=== PATIENT | female | born 1945 | race Caucasian/White ===

== ENCOUNTER 2017-04-28 14:46 | Emergency (ER) | payer MEDICARE, OTHER ==
[2017-04-28 15:28] LABS: BASOPHILS % (AUTO) 0.4 %; HCT - HEMATOCRIT 39.4 % (37.0-47.0); HGB - HEMOGLOBIN 13.2 g/dL (12.0-16.0); LYMPHOCYTES # (AUTO) 2.2 10^3/uL (1.5-3.5); LYMPHOCYTES % (AUTO) 45.1 %; MEAN CORPUSCULAR HEMOGLOBIN 30.4 pg (27.0-31.0); MEAN CORPUSCULAR HGB CONC 33.5 g/dL (32.0-36.0); MEAN CORPUSCULAR VOLUME 90.7 fL (81.0-99.0); MEAN PLATELET VOLUME 7.2 fL (7.9-10.8); MONOCYTES # (AUTO) 0.5 10^3/uL (0.0-1.0); MONOCYTES % (AUTO) 10.2 %; NEUTROPHILS # (AUTO) 2.1 10^3/uL (1.5-6.6); NEUTROPHILS % (AUTO) 43.3 %; NUCLEATED RED BLOOD CELLS AUTO 0.1 /100WBC; RED BLOOD COUNT 4.34 10^6/uL (4.20-5.40); RED CELL DISTRIBUTION WIDTH 13.7 % (12.0-15.0); UNCORRECTED WHITE BLOOD COUNT 4.9 x10^3/uL; WHITE BLOOD COUNT 4.9 x10^3/uL (4.8-10.8)
--- NOTE | 2017-04-28 15:29 | ED Physician Documentation ---
PD HPI CHEST PAIN - Stated complaint Stated Complaint: PX LT SIDE CHEST AREA - Chief complaint Chief Complaint: Cardiac - History obtained from History obtained from: Patient - History of Present Illness Timing - onset: Yesterday Timing - onset during: Other (states awoke from sleeep and had L sided sharp chest pain, "like pokes" lasted 1-2 seconds. Occured again this am. Currently feels normal) Timing - duration: Seconds (1-2) Timing - details: Abrupt onset Pain level max: 3 Pain level now: 0 Quality: Sharp Location: Other (L upper chest) Radiation: Other (nonradiating) Improved by: No: Rest, Oxygen, Nitro, ASA, Antacids, Other medication, Nothing Worsened by: No: Exertion, Inspiration, Eating, Movement, Palpation, Position Associated symptoms: No: Shortness of air, Diaphoresis, Nausea, Vomiting, Feeling faint / dizzy, General Weakness, Palpitations, Cough Similar symptoms before: Has not had sx before Recently seen: Not recently seen Review of Systems Constitutional: denies: Fever, Chills Ears: denies: Ear pain Nose: denies: Rhinorrhea / runny nose, Congestion Throat: denies: Sore throat Cardiac: reports: Other (no recent travel). denies: Pedal edema, Calf pain Respiratory: denies: Dyspnea, Cough, Hemoptysis, Wheezing GI: denies: Abdominal Pain, Nausea, Vomiting, Diarrhea Skin: denies: Rash Musculoskeletal: denies: Neck pain, Back pain Neurologic: denies: Headache PD PAST MEDICAL HISTORY - Past Medical History Other Past Medical History: tremors - Past Surgical History Past Surgical History: Yes General: Colonoscopy - Present Medications Home Medications: Ambulatory Orders Medication Instructions Recorded Confirmed Gabapentin [Neurontin] 300 mg PO TID PRN 04/18/16 04/28/17 - Allergies Allergies/Adverse Reactions: Allergies Allergy/AdvReac Type Severity Reaction Status Date / Time No Known Drug Allergies Allergy Verified 04/18/16 16:23 - Social History Does the pt smoke?: No Smoking Status: Former smoker Does the pt drink ETOH?: No Does the pt have substance abuse?: No - Immunizations Immunizations are current?: Yes PD ED PE NORMAL - Vitals Vital signs reviewed: Yes - General General: Alert and oriented X 3, No acute distress, Well developed/nourished - HEENT HEENT: Moist mucous membranes - Neck Neck: Supple, no meningeal sign - Cardiac Cardiac: RRR, No murmur, Strong equal pulses, Other (no chest wall tenderness) - Respiratory Respiratory: No respiratory distress, Clear bilaterally - Abdomen Abdomen: Soft, Non tender, Non distended - Derm Derm: Warm and dry - Extremities Extremities: No deformity, No edema, No calf tenderness / cord - Neuro Neuro: Alert and oriented X 3 - Psych Psych: Normal mood, Normal affect Results - Vitals Vitals: Vital Signs - 24 hr 04/28/17 04/28/17 14:50 15:52 Temperature 36.0 C L 36.0 C L Heart Rate 68 69 Respiratory 16 18 Rate Blood Pressure 137/75 H 118/56 L O2 Saturation 96 95 Oxygen O2 Source Room air - EKG (time done) 1522 Rate: Rate (enter#) (61) Rhythm: NSR Braxton: Normal Intervals: Normal MO QRS: Normal Ischemia: Normal ST segments, Other (early R wave transition) - Labs Labs: Laboratory Tests 04/28/17 04/28/17 04/28/17 09:54 09:54 15:07 WBC Cancelled 4.9 RBC Cancelled 4.34 Hgb Cancelled 13.2 Hct Cancelled 39.4 MCV Cancelled 90.7 MCH Cancelled 30.4 MCHC Cancelled 33.5 RDW Cancelled 13.7 Plt Count Cancelled 241 MPV Cancelled 7.2 L Neut # Cancelled 2.1 Lymph # Cancelled 2.2 [place] # Cancelled 0.5 Eos # Cancelled 0.0 Baso # Cancelled 0.0 Absolute Nucleated RBC Cancelled 0.00 Nucleated RBCs Cancelled 0.1 Manual Slide Review Cancelled WBC Morphology Cancelled Platelet Estimate Cancelled Platelet Morphology Cancelled RBC Morph Micro Appear Cancelled Sodium Cancelled Potassium Cancelled Chloride Cancelled Carbon Dioxide Cancelled Anion Gap Cancelled BUN Cancelled Creatinine Cancelled Estimated GFR (MDRD) Cancelled Glucose Cancelled Calcium Cancelled Total Bilirubin Cancelled AST Cancelled ALT Cancelled Alkaline Phosphatase Cancelled Troponin I Total Protein Cancelled Albumin Cancelled Globulin Cancelled Albumin/Globulin Ratio Cancelled Triglycerides Cancelled Cholesterol Cancelled LDL Cholesterol, Calc Cancelled VLDL Cholesterol Cancelled HDL Cholesterol Cancelled LDL/HDL Ratio Cancelled Cholesterol/HDL Ratio Cancelled Lipase Slides for Path Review Cancelled 04/28/17 04/28/17 15:07 15:07 WBC RBC Hgb Hct MCV MCH MCHC RDW Plt Count MPV Neut # Lymph # [place] # Eos # Baso # Absolute Nucleated RBC Nucleated RBCs Manual Slide Review WBC Morphology Platelet Estimate Platelet Morphology RBC Morph Micro Appear Sodium 137 Potassium 3.8 Chloride 102 Carbon Dioxide 28 Anion Gap 7.0 BUN 18 Creatinine 0.9 Estimated GFR (MDRD) 61 L Glucose 103 H Calcium 9.2 Total Bilirubin 0.5 AST 28 ALT 20 Alkaline Phosphatase 58 Troponin I < 0.04 Total Protein 7.2 Albumin 4.3 Globulin 2.9 Albumin/Globulin Ratio 1.5 Triglycerides Cholesterol LDL Cholesterol, Calc VLDL Cholesterol HDL Cholesterol LDL/HDL Ratio Cholesterol/HDL Ratio Lipase 32 Slides for Path Review - Rads (name of study) cxr Radiology: Prelim report reviewed, EMP read contemporaneously, See rad report ( No acute disease) PD MEDICAL DECISION MAKING - ED course Complexity details: reviewed results, re-evaluated patient, considered differential (No ST elevation GA, no aortic dissection, no PE, no tension pneumothorax, no aortic aneurysm), d/w patient ED course: Patient is a 72-year-old female who presents to the emergency department with a few seconds of intermittent sharp chest pain yesterday morning and this morning. Has not recurred since. Did not occur in the emergency department. No acute findings on telemetry, laboratory testing or chest x-ray to explain her symptoms. Possible that she is having premature ventricular contractions causing discomfort. We will have her follow-up with her doctor for further evaluation and care including a Holter monitor if the symptoms persist. She will return if the symptoms worsen or become more steady. Patient counseled regarding signs and symptoms for which I believe and urgent re-evaluation would be necessary. Patient with good understanding of and agreement to plan and is comfortable going home at this time This document was made in part using voice recognition software. While efforts are made to proofread this document, sound alike and grammatical errors may occur. Departure - Departure Disposition: 01 Home, Self Care Clinical Impression: Chest pain Qualifiers: Chest pain type: unspecified Qualified Code(s): R07.9 - Chest pain, unspecified Condition: Good Instructions: ED Chest Pain Atypical Unkn Cause Follow-Up: [facility] [Provider Group] [facility] [Provider Group] Comments: The cause of your symptoms is unclear today. Return if you worsen. If your symptoms continue, your doctor may consider a Holter monitor. Discharge Date/Time: 04/28/17 16:49
[2017-04-28 15:32] LABS: ALBUMIN/GLOBULIN RATIO 1.5 (1.0-2.2); BILIRUBIN,TOTAL 0.5 mg/dL (0.2-1.0); CALCIUM 9.2 mg/dL (8.5-10.3); CREATININE 0.9 mg/dL (0.4-1.0); POTASSIUM 3.8 mmol/L (3.5-5.0); TOTAL PROTEIN 7.2 g/dL (6.7-8.2)
[2017-04-28 15:52] VITALS: BP 118/56
--- NOTE | 2017-04-28 16:32 | XRAY Preliminary Report ---
Exam: XR Chest 1 View IMPRESSION: No focal consolidation. [facility] SITE ID: [id number]
--- NOTE | 2017-04-28 16:35 | XRAY Report ---
EXAM: CHEST RADIOGRAPHY EXAM DATE: 04/28/2017 04:00 PM. CLINICAL HISTORY: Chest pain. COMPARISON: Chest radiograph dated 03/27/2016. TECHNIQUE: 1 view. FINDINGS: Lungs/Pleura: No focal opacities evident. No pleural effusion. No pneumothorax. Mediastinum: Within exam limitations, cardiomediastinal contour is normal. Other: None. IMPRESSION: No focal consolidation. [facility] Referring Provider Line: [phone] SITE ID: [id number]
== END 2017-04-28 16:49 | disposition home or self-care (01) ==
LOC: ED 14:46
DX: R07.9 Chest pain, unspecified (principal); Z87.891 Personal history of nicotine dependence
CPT/HCPCS: 36415; 71010; 80053; 80061; 83036; 83690; 84153; 84484; 85025; 93005; 99283; 99284

== ENCOUNTER 2019-05-20 15:55 | Emergency (ER) | payer MEDICARE, OTHER ==
[2019-05-20 16:02] VITALS: BP 145/60
--- NOTE | 2019-05-20 16:33 | ED Physician Documentation ---
PD HPI HEAD INJURY - Stated complaint Stated Complaint: HEAD INJURY - Chief complaint Chief Complaint: Neuro - History obtained from History obtained from: Patient - History of Present Illness Mechanism of head injury: Other (took a misstep backwards and hit the back of her head against a concrete wall) Where head injury occurred: Other (library) Timing - onset: How many hours ago (2), Today Severity Comments: mild, feels a bump but has no pain Location of injury: Other (back of head) Quality of pain: Other (none) Associated symptoms: No: LOC, AMS, Amnesia, Nausea / vomiting, Neck pain, Paresthesias, Seizures, Ear drainage, Nasal drainage Symptoms improve with: Other (nothing) Symptoms worsen with: Other (nothing) Contributing factors: No: Anticoagulated, Intoxicated Similar symptoms before: Has not had sx before Recently seen: Not recently seen - Treatment prior to arrival Treatment prior to arrival: none Review of Systems Ten Systems: 10 systems reviewed and negative Constitutional: reports: Reviewed and negative Cardiac: reports: Reviewed and negative Respiratory: reports: Reviewed and negative GI: reports: Reviewed and negative Skin: reports: Reviewed and negative Musculoskeletal: reports: Reviewed and negative Neurologic: reports: Head injury. 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 - Present Medications Home Medications: Ambulatory Orders Medication Instructions Recorded Confirmed Gabapentin [Neurontin] 300 mg PO TID PRN 04/18/16 04/28/17 - Allergies Allergies/Adverse Reactions: Allergies Allergy/AdvReac Type Severity Reaction Status Date / Time No Known Drug Allergies Allergy Verified 04/18/16 16:23 - Social History Does the pt smoke?: No Smoking Status: Former smoker Does the pt drink ETOH?: No Does the pt have substance abuse?: No - Immunizations Immunizations are current?: Yes PD ED PE NORMAL - Vitals Vital signs reviewed: Yes - General General: Alert and oriented X 3, No acute distress, Well developed/nourished - HEENT HEENT: Atraumatic, PERRL, EOMI, Ears normal, Pharynx benign, Other (normal TMs bilaterally, no hemotympanum) - Neck Neck: Supple, no meningeal sign, No bony TTP, No JVD, Other (full ROM) - Cardiac Cardiac: RRR - Respiratory Respiratory: No respiratory distress - Abdomen Abdomen: Non tender, Non distended - Female Female : Deferred - Rectal Rectal: Deferred - Back Back: No spinal TTP - Derm Derm: Normal color, Warm and dry, No rash - Extremities Extremities: No deformity, Normal ROM s pain, No edema - Neuro Neuro: Alert and oriented X 3, No motor deficit, No sensory deficit Eye Opening: Spontaneous Motor: Obeys Commands Verbal: Oriented GCS Score: 15 - Psych Psych: Normal mood, Normal affect PD ED PE EXPANDED - HEENT HEENT: Other (occipital scalp contusion present without skin injury ) Results - Vitals Vitals: Vital Signs - 24 hr 05/20/19 15:58 Temperature 36.9 C Heart Rate 77 Respiratory 18 Rate Blood Pressure 145/60 H O2 Saturation 98 Oxygen O2 Source Room air PD MEDICAL DECISION MAKING - ED course Complexity details: considered differential, d/w patient ED course: ddx- scalp contusion, skull fracture, ICH, concussion 74 y/o F with very minor head trauma, not anticoagulated, no skin breakdown and is asymptomatic except for a very mild bump on the back of her occiput. Normal neuro and physical exam. Discussed with pt that this is very low risk for ICH or injury and pt denies any pain. Does not want meds. She is stable for discharge with return precatuions in case of new or concerning symptoms. Departure - Departure Disposition: 01 Home, Self Care Clinical Impression: Contusion of head Qualifiers: Encounter type: initial encounter Contusion of head detail: scalp Qualified Code(s): S00.03XA - Contusion of scalp, initial encounter Condition: Stable Record reviewed to determine appropriate education?: Yes Instructions: ED Head Injury Closed Follow-Up: your, doctor [Other] - As Needed Comments: You have a contusion of your scalp. There is no evidence of serious head trauma on your examination. You can use ice on the back of your head for discomfort and to reduce swelling and take tylenol as needed for a headache.
== END 2019-05-20 16:50 | disposition home or self-care (01) ==
LOC: ED 15:55
DX: S00.03XA Contusion of scalp, initial encounter (principal); W10.9XXA Fall (on) (from) unspecified stairs and steps, initial encounter; Y92.241 Library as the place of occurrence of the external cause; Z87.891 Personal history of nicotine dependence
CPT/HCPCS: 99282

== ENCOUNTER 2020-03-06 10:30 | Outpatient (CLI) | payer MEDICARE, OTHER | END 2020-03-06 23:59 | disposition home or self-care (01) | LOC: COV 10:30 | PROVIDERS: ATTEND Family Medicine | DX: Z11.59 Encounter for screening for other viral diseases (principal) ==

== ENCOUNTER 2020-07-14 07:37 | Outpatient (CLI) | payer MEDICARE, OTHER ==
--- NOTE | 2020-07-14 13:05 | Ultrasound Report ---
PROCEDURE: Abdomen Complete INDICATIONS: ABD PAIN TECHNIQUE: Real-time scanning was performed of the abdominal and retroperitoneal organs, with image documentatio n. COMPARISON: None. FINDINGS: Liver: The liver demonstrates normal size. The liver demonstrates increased echogenicity, which limit s ultrasound sensitivity for detection of masses. Overall evaluation of the liver is limited. Gallbladder: No gallstones or significant sludge can be seen. The gallbladder wall does not appear th ickened. There is no specific pericholecystic fluid. The sonographic Delgado's sign is negative. Biliary ducts: Intrahepatic bile ducts are non-dilated. Extrahepatic bile duct caliber measures 3 m m. Normal is 6-7 mm or less in diameter, or 10 mm or less post-cholecystectomy. Pancreas: A gastric tube is seen, with the tip not visible within the [id number] of this image, a lthough clearly below the diaphragm. Spleen: Spleen is normal in size and homogeneous in echotexture. Kidneys: Kidneys are normal in size and echotexture. Right kidney measures 10.3 cm long; left kidne y measures 12.1 cm long. No hydronephrosis or nephrolithiasis. No solid masses. Within the left ki dney, there is a 1 cm simple cyst seen. Overall evaluation of the kidneys is limited, secondary to [place] wel gas. Aorta: Visualized aorta is normal in caliber at less than 3 cm. Iliacs: Proximal common iliac arteries are normal in caliber at less than 2.5 cm. IVC: Intrahepatic inferior vena cava is patent. Miscellaneous: No free abdominal fluid. IMPRESSION: No imaging explanation is found for this patient's presenting history of abdominal pain. The gallbladder demonstrates a normal sonographic appearance. No biliary dilatation is seen. Likely fatty liver infiltration. Overall imaging quality is limited, secondary to bowel gas. Reviewed by: Dwayne Gutierrez MD on 07/14/2020 12:04 PM [facility] Approved by: Dwayne Gutierrez MD on 07/14/2020 12:04 PM [facility] Station ID: [id number]
== END 2020-07-14 07:38 | disposition home or self-care (01) ==
LOC: DI 07:37
PROVIDERS: ATTEND Physician Assistant
DX: R01.1 Cardiac murmur, unspecified (principal); R09.89 Other specified symptoms and signs involving the circulatory and respiratory systems; R10.11 Right upper quadrant pain; R41.3 Other amnesia

== ENCOUNTER 2020-07-16 11:43 | Outpatient (CLI) | payer MEDICARE, OTHER ==
--- NOTE | 2020-07-16 13:26 | Ultrasound Report ---
PROCEDURE: Carotid Doppler Complete INDICATIONS: CARDIAC MURMUR, OTH SYMPTOMS AND SIGNS INVOLVING T TECHNIQUE: Color and pulse Doppler interrogation was performed of both carotid systems, with image documentation and velocity measurements. COMPARISON: None. FINDINGS: Right side: Common carotid artery peak systolic velocity: 70 cm/sec. Internal carotid artery peak systolic velocity: 41 cm/sec. Internal carotid artery end diastolic velocity: 12 cm/sec. External carotid artery peak systolic velocity: 40 cm/sec. ICA/CCA peak systolic ratio: 0.6 . Blanchard scale imaging description: Mild calcific plaque at the bifurcation Percent internal carotid artery stenosis: Less than 50% . Vertebral artery: Flow direction is antegrade. Left side: Common carotid artery peak systolic velocity: 79 cm/sec. Internal carotid artery peak systolic velocity: 69 cm/sec. Internal carotid artery end diastolic velocity: 22 cm/sec. External carotid artery peak systolic velocity: 77 cm/sec. ICA/CCA peak systolic ratio: 0.9 . Blanchard scale imaging description: Mild calcific plaque at the bifurcation Percent internal carotid artery stenosis: Less than 50% . Vertebral artery: Flow direction is antegrade. IMPRESSION: 1. Less than 50% bilateral internal carotid artery stenosis. 2. Antegrade vertebral artery flow bilaterally. The estimate of stenosis included in the report of the imaging study was calculated using the NASCET method Reviewed by: Michaela Abraham MD on 07/16/2020 1:25 PM PST Approved by: Michaela Abraham MD on 07/16/2020 1:25 PM PST Station ID: [id number]
== END 2020-07-16 11:44 | disposition home or self-care (01) ==
LOC: DI 11:43
PROVIDERS: ATTEND Physician Assistant
DX: R01.1 Cardiac murmur, unspecified (principal); R09.89 Other specified symptoms and signs involving the circulatory and respiratory systems; R10.11 Right upper quadrant pain; R41.3 Other amnesia
CPT/HCPCS: 93880

== ENCOUNTER 2020-07-17 07:22 | Outpatient (CLI) | payer MEDICARE, OTHER | END 2020-07-17 07:23 | disposition home or self-care (01) | LOC: DI 07:22 | PROVIDERS: ATTEND Physician Assistant | DX: R00.1 Bradycardia, unspecified (principal); I51.7 Cardiomegaly; I34.8 Other nonrheumatic mitral valve disorders; I27.20 Pulmonary hypertension, unspecified | CPT/HCPCS: 93306 ==

== ENCOUNTER 2020-07-26 12:40 | Emergency (ER) | payer MEDICARE, OTHER ==
--- NOTE | 2020-07-26 13:04 | ED Physician Documentation ---
PD HPI ABD PAIN - Stated complaint Stated Complaint: BACK PX - Chief complaint Chief Complaint: Back Pain - History obtained from History obtained from: Patient - History of Present Illness Timing - onset: How many weeks ago (2) Timing - details: Gradual onset, Intermittant, Waxing and waning Quality: Cramping, Aching, Sharp, Pain Location: RUQ Radiation: Right flank. No: Lower back, Left flank Associated symptoms: Constipation. No: Nausea, Vomiting, Diarrhea, Melena Similar symptoms before: Has not had sx before (had shingles outbreak in that area years ago. No note of rash however, and has had the pain for couple weeks. Has had shingles vaccine couple years ago.) Recently seen: Clinic (seen by PC and had outpt labs and RUQ U/S as well as carotid duplex. 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 - Present Medications Home Medications: Ambulatory Orders Medication Instructions Recorded Confirmed Gabapentin [Neurontin] 300 mg PO TID PRN 04/18/16 04/28/17 Docusate Sodium 250Mg Capsule 250 mg PO DAILY #20 capsule 07/26/20 [Colace 250Mg Capsule] HYDROcod/ACETAM 5/325 [[place] 5/325] 1 ea PO Q6H PRN #15 tablet 07/26/20 Valacyclovir HCl [Valtrex] 500 mg PO TID #15 tablet 07/26/20 dexAMETHasone [Decadron] 4 mg PO DAILY #5 tablet 07/26/20 - Allergies Allergies/Adverse Reactions: Allergies Allergy/AdvReac Type Severity Reaction Status Date / Time No Known Drug Allergies Allergy Verified 07/26/20 13:01 - Social History Does the pt smoke?: No Smoking Status: Former smoker Does the pt drink ETOH?: No Does the pt have substance abuse?: No - Immunizations Immunizations are current?: Yes PD ED PE NORMAL - Vitals Vital signs reviewed: Yes - General General: Alert and oriented X 3, Well developed/nourished, Other (appears in pain) - HEENT HEENT: Pharynx benign - Neck Neck: Supple, no meningeal sign, No adenopathy - Cardiac Cardiac: RRR, No murmur - Respiratory Respiratory: Clear bilaterally - Abdomen Abdomen: Normal bowel sounds, Soft, Non distended, No organomegaly, Other (tender RUQ area. Not tender to light touch. ) - Back Back: Other (some tenderness to palpation right flank area. ) - Derm Derm: Normal color, Warm and dry, No rash - Extremities Extremities: No deformity, No tenderness to palpate, No edema, No calf tenderness / cord - Neuro Neuro: Alert and oriented X 3, No motor deficit, Normal speech Results - Vitals Vitals: Vital Signs - 24 hr 07/26/20 07/26/20 12:53 15:00 Temperature 36.6 C Heart Rate 88 75 Respiratory 16 18 Rate Blood Pressure 136/72 H 126/72 O2 Saturation 99 99 Oxygen O2 Source Room air - Labs Labs: Laboratory Tests 07/26/20 07/26/20 07/26/20 13:25 13:25 13:25 WBC 4.7 L RBC 4.57 Hgb 14.0 Hct 42.7 MCV 93.4 MCH 30.6 MCHC 32.8 RDW 13.2 Plt Count 268 MPV 9.2 Neut # (Auto) 2.4 Lymph # (Auto) 1.9 [place] # (Auto) 0.4 Eos # (Auto) 0.0 Baso # (Auto) 0.0 Absolute Nucleated RBC 0.00 Nucleated RBC % 0.0 Sodium 141 Potassium 4.1 Chloride 101 Carbon Dioxide 26 Anion Gap 14.0 H BUN 16 Creatinine 0.9 Estimated GFR (MDRD) 61 L Glucose 117 H Calcium 9.8 Total Bilirubin 0.7 AST 21 ALT 19 Alkaline Phosphatase 78 Total Protein 7.7 Albumin 4.5 Globulin 3.2 Albumin/Globulin Ratio 1.4 Lipase 27 Urine Color YELLOW Urine Clarity CLEAR Urine pH 5.5 Ur Specific [place] >=1.030 H Urine Protein NEGATIVE Urine Glucose (UA) NEGATIVE Urine Ketones TRACE Urine Occult Blood NEGATIVE Urine Nitrite NEGATIVE Urine Bilirubin NEGATIVE Urine Urobilinogen 0.2 (NORMAL) Ur Leukocyte Esterase NEGATIVE Ur Microscopic Review NOT INDICATED Urine Culture Comments NOT INDICATED - Rads (name of study) abd/pelvic CT Radiology: Prelim report reviewed (moderate stool burden. No acute process. ), See rad report PD MEDICAL DECISION MAKING - ED course Complexity details: considered differential (considerable pain right upper abd around to back. Tender in the area. CT normal. SHe had had shingles in the area about 5 years ago with somewhat similar pain. Consider that without rash. ), d/w patient Departure - Departure Disposition: 01 Home, Self Care Clinical Impression: Right sided abdominal pain Condition: Stable Record reviewed to determine appropriate education?: Yes Instructions: ED Abdominal Pain Unkn Cause Prescriptions: Docusate Sodium 250Mg Capsule [Colace 250Mg Capsule] 250 mg PO DAILY #20 capsule dexAMETHasone [Decadron] 4 mg PO DAILY #5 tablet HYDROcod/ACETAM 5/325 [[place] 5/325] 1 ea PO Q6H PRN #15 tablet PRN Reason: Pain Valacyclovir HCl [Valtrex] 500 mg PO TID #15 tablet Comments: Your blood tests and urine test and CT scan did not show any obvious abnormality other than a moderate amount of stool in the upper colon and small bowel. You could be having some pain associated from that so you could use a stool softener daily for the next week or 2. However the pain seems more localized than I would expect from that. Given the normal testing, I am curious if this may represent a mild case of shingles without rash. You would expect a mild case if you did get it since you have had the vaccine. As such we can treat with Laurita acyclovir or antiviral and Decadron anti- inflammatory for 5 days. Use Tylenol 4 times a day for pain or hydrocodone if needed for worse pain. Stay well-hydrated. Recheck if not improving well over the next few days and resolved within 3 to 5 days. Discharge Date/Time: 07/26/20 15:38
[2020-07-26 13:30] LABS: BASOPHILS % (AUTO) 0.6 %; EOSINOPHILS % (AUTO) 0.8 %; LYMPHOCYTES # (AUTO) 1.9 10^3/uL (1.5-3.5); LYMPHOCYTES % (AUTO) 39.7 %; MEAN CORPUSCULAR HEMOGLOBIN 30.6 pg (27.0-31.0); MEAN CORPUSCULAR HGB CONC 32.8 g/dL (32.0-36.0); MEAN CORPUSCULAR VOLUME 93.4 fL (81.0-99.0); MEAN PLATELET VOLUME 9.2 fL (7.9-10.8); MONOCYTES # (AUTO) 0.4 10^3/uL (0.0-1.0); MONOCYTES % (AUTO) 8.6 %; NEUTROPHILS # (AUTO) 2.4 10^3/uL (1.5-6.6); NEUTROPHILS % (AUTO) 50.1 %; PLT - PLATELET COUNT 268 10^3/uL (130-450); RED BLOOD COUNT 4.57 10^6/uL (4.20-5.40); RED CELL DISTRIBUTION WIDTH 13.2 % (12.0-15.0); WHITE BLOOD COUNT 4.7 x10^3/uL (4.8-10.8)
[2020-07-26 13:36] LABS: GLUCOSE, URINE (UA) NEGATIVE (NEGATIVE); KETONES,URINE (UA) TRACE mg/dL (NEGATIVE); LEUKOCYTE ESTERASE, URINE NEGATIVE (NEGATIVE); NITRITE,URINE NEGATIVE (NEGATIVE); OCCULT BLOOD,URINE NEGATIVE (NEGATIVE); PH,URINE 5.5 PH (5.0-7.5); PROTEIN,URINE NEGATIVE (NEGATIVE); UROBILINOGEN,URINE 0.2 (NORMAL) E.U./dL (NORMAL)
[2020-07-26] MEDS ORDERED: HYDROmorphone 1 MG/ML CARPUJECT IVP STA (13:36)
[2020-07-26] MEDS ORDERED: KETOROLAC 15 MG/ML VIAL IVP STA (13:36)
[2020-07-26 13:40] LABS: ALBUMIN 4.5 g/dL (3.2-5.5); ALBUMIN/GLOBULIN RATIO 1.4 (1.0-2.2); BILIRUBIN,TOTAL 0.7 mg/dL (0.2-1.0); CALCIUM 9.8 mg/dL (8.5-10.3); CREATININE 0.9 mg/dL (0.4-1.0); TOTAL PROTEIN 7.7 g/dL (6.7-8.2)
[2020-07-26 13:46] LABS: BILIRUBIN,URINE NEGATIVE (NEGATIVE); CLARITY,URINE CLEAR (CLEAR); ICTOTEST,URINE NEGATIVE
[2020-07-26] MEDS ORDERED: IOVERSOL 320 100 ML VIAL IVP ONE ×2 (13:57→16:49)
--- NOTE | 2020-07-26 14:35 | CT Report ---
PROCEDURE: Abdomen/Pelvis W INDICATIONS: right abd and flank pain for 2 weeks, worse CONTRAST: IV CONTRAST: Optiray 320 ml: 100 PO CONTRAST: *NO PO CONTRAST TECHNIQUE: After the administration of nonionic contrast, 5 mm thick sections acquired from the diaphragms to th e symphysis. 5 mm thick coronal and sagittal reformats were acquired. For radiation dose reduction, the following was used: automated exposure control, adjustment of mA and/or kV according to patient size. COMPARISON: Abdominal ultrasound 07/14/2020. FINDINGS: Image quality: Excellent. ABDOMEN: Lung bases: Lung bases are clear. Heart size is normal. Solid organs: Liver and spleen are normal in size and enhancement. Gallbladder Biliary system is non dilated. Pancreas enhances normally. No adrenal nodules. Kidneys demonstrate normal size an d enhancement, without hydronephrosis. Peritoneum and bowel: Bowel loops demonstrate normal wall thickness and caliber. No free fluid or a ir. There is generalized colonic obstipation bilaterally, within the abdomen and pelvis. Nodes and vessels: No retroperitoneal or mesenteric adenopathy by size criteria. Aorta and inferior vena cava are normal in size. Miscellaneous: No ventral hernias. PELVIS: Genitourinary: Bladder wall thickness is normal. Miscellaneous: No inguinal hernias or adenopathy. Bones: No suspicious bony lesions. No vertebral body compression fractures. IMPRESSION: Generalized colonic obstipation, as a potential etiology for current symptomatology. No urinary tract stone or obstruction is suspected. No perinephric edema is found. A mass lesion as caus e of stool retention is not identified. Reviewed by: Chip Hogue MD on 07/26/2020 2:34 PM PST Approved by: Chip Hogue MD on 07/26/2020 2:34 PM PST Station ID: [id number]
[2020-07-26] MEDS ORDERED: DOCUSATE SODIUM 100 MG CAPSULE PO STA (14:54)
[2020-07-26 15:00] VITALS: BP 126/72
[2020-07-26] MEDS ORDERED: ONDANSETRON ODT 4 MG TABLET TL STA (15:27)
== END 2020-07-26 15:38 | disposition home or self-care (01) ==
LOC: ED 12:40
DX: R10.11 Right upper quadrant pain (principal); K59.00 Constipation, unspecified; Z87.891 Personal history of nicotine dependence
CPT/HCPCS: 36415; 74177; 80053; 81003; 83690; 85025; 96374; 99284; A9270; J1170; Q0162; Q9967; 81001; 87086

== ENCOUNTER 2020-08-06 11:12 | Outpatient (CLI) | payer MEDICARE, OTHER ==
[2020-08-06] MEDS ORDERED: GADOBUTROL 10 MMOL/10 ML VIAL ONE (11:46)
[2020-08-06] MEDS ORDERED: GADOBUTROL 10 MMOL/10 ML VIAL IVP ONE (14:10)
--- NOTE | 2020-08-06 16:05 | MRI Report ---
PROCEDURE: Angio Brain W/O (MRA) INDICATIONS: AMNESIA TECHNIQUE: Noncontrast axial 3-D [id number] MR angiogram, with 3-dimensional maximum intensity projection (M IP) reformats of the internal carotid arteries and posterior circulation then performed. COMPARISON: None. FINDINGS: Image quality: Excellent. Anterior circulation: Intracranial internal carotid arteries demonstrate normal size and intralumina l flow signal. The flow within the paired anterior cerebral arteries is normal and symmetric. Mild multifocal stenoses within the bilateral middle cerebral arteries. The flow within the middle cerebra l arteries is otherwise normal and symmetric. The anterior communicating artery is seen. Posterior circulation: Visualized portions of the vertebral arteries demonstrate normal caliber, and join to form a normal appearing basilar artery. There is a high-grade focal stenosis within the left posterior cerebral artery, roughly 20 mm distal to its origin. High-grade stenosis within the right posterior cerebral artery, roughly 30 mm distal to its origin. IMPRESSION: 1. High-grade bilateral posterior cerebral artery stenoses. 2. Mild bilateral middle cerebral artery stenoses. Reviewed by: Michaela Abraham MD on 08/06/2020 4:03 PM PST Approved by: Michaela Abraham MD on 08/06/2020 4:03 PM PST Station ID: [id number]
--- NOTE | 2020-08-06 16:07 | MRI Report ---
PROCEDURE: Angio Neck W/WO (MRA) INDICATIONS: AMNESIA CONTRAST: IV CONTRAST: Gadavist ml: 8 TECHNIQUE: Axial and sagittal balanced GE through the neck. Coronal dynamic MRA after the administration of con trast in the arterial and venous phases, with rotating 3-dimensional maximum intensity projection (DC P) reformats constructed from subtraction images. COMPARISON: None. FINDINGS: Image quality: Excellent. Carotid system: Great vessels demonstrate a conventional anatomy as they arise from the aortic arch. The origins of the common carotid arteries appear normal. The calibers and courses of the common c arotid arteries are likewise normal. The carotid bifurcations appear normal bilaterally. There are m ild, roughly 20% stenoses of the proximal bilateral internal carotid arteries, which are otherwise pa tent. Posterior circulation: Right vertebral artery demonstrates a high-grade origin stenosis. Left vertebr al artery origin is patent. The more superior portions of the vertebral arteries demonstrate normal c ourse and caliber. Vertebral arteries join to form a normal appearing basilar artery. Miscellaneous: Subclavian arteries are patent throughout. Pre-contrast images through the neck demo nstrate no soft tissue abnormalities. IMPRESSION: 1. Mild bilateral proximal internal carotid artery stenoses. 2. High-grade right vertebral artery origin stenosis. 3. Patent left vertebral artery. Reviewed by: Michaela Abraham MD on 08/06/2020 4:06 PM PST Approved by: Michaela Abraham MD on 08/06/2020 4:06 PM PST Station ID: [id number]
== END 2020-08-06 11:13 | disposition home or self-care (01) ==
LOC: DI 11:12
PROVIDERS: ATTEND Physician Assistant
DX: R41.3 Other amnesia (principal); I65.01 Occlusion and stenosis of right vertebral artery; I65.23 Occlusion and stenosis of bilateral carotid arteries
CPT/HCPCS: 70544; 70549; A9585

== ENCOUNTER 2020-08-14 10:43 | Day surgery (SDC) | payer MEDICARE, OTHER ==
[2020-08-14] MEDS ORDERED: LACTATED RINGERS 1,000 ML IV ONE (11:29)
[2020-08-14] MEDS ORDERED: MIDAZOLAM 2 MG/2 ML VIAL ONE ×2 (12:35→12:36)
[2020-08-14] MEDS ORDERED: fentaNYL 250 MCG/5 ML VIAL ONE (12:36)
--- NOTE | 2020-08-14 12:36 | SURGERY HX AND PHYSICAL(T) ---
Surgical History & Physical - Chief Complaint/HPI Chief Complaint: Change in bowel habits History of Present Illness: 75-year-old female who has undergone ED work-up for chronic abdominal pain and acute change in bowel habits who was seen in surgical clinic by Dr. Wilfred To for said symptoms. Patient denies having undergone historic colonoscopy. She denies any bleeding per rectum. She denies any family history of colorectal cancer. She reports bowel movements have been progressively difficult acutely ever since her return from [place]. She even reports necessary digital disimpaction occasionally. CT scan reportedly showed colon full of stool. Patient referred for colonoscopy to evaluate further. Patient denies history of cerebrovascular accident/stroke, [place], DVT and/or PE. She does report cerebrovascular disease with vessels that she points to the back of her neck with compromised flow for which she is pending intervention at [facility]. She explains that "vessels in the front" were initially thought to be an issue but were evaluated and were "fine". She takessystemic anticoagulation and as reviewed takes no medications. - PMH/PSH/Social Hx Does the pt have a hx of MRSA?: No Cardiovascular: None Respiratory: None Skin: None, Other Endocrine/Autoimmune: None Gastrointestinal: C.difficile Urinary: None Musculoskeletal: None Blood Disorders: None Psychiatric: None General: Colonoscopy Orthopedic: Other Smoking Status: Former smoker Does the pt drink ETOH?: No Does the pt have substance abuse?: No - Home Meds and Allergies Allergies/Adverse Reactions: Allergies Allergy/AdvReac Type Severity Reaction Status Date / Time No Known Drug Allergies Allergy Verified 07/26/20 13:01 - Review of Systems Gastrointestinal: Abdominal pain, Constipation. No: Nausea, Vomiting, Ryne tochechezia - Vital Signs Heart Rate: 61 Blood Pressure: 127/67 Temperature: 36.0 C Respiratory Rate: 16 O2 Saturation: 97 Weight (kg): 84 kg Height: 1.7 m - Physical Exam General Appearance: positive: No acute distress, Alert Eyes Bilatera: positive: Normal inspection, PERRL, EOMI ENT: positive: ENT inspection nml Neck: positive: Nml inspection Respiratory: positive: Chest non-tender, No respiratory distress, Breath sounds nml. negative: Wheezes, Rales, Rhonchi Cardiovascular: positive: Regular rate & rhythm Abdomen: positive: Non-tender, No distention. negative: Tenderness, Guarding, Rebound Neurologic/Psychiatric: positive: Oriented x3, CN's nml (2-12), Motor nml, Sensation nml, Mood/affect nml, Other (Patient appears to have tremor, not resting, with admitted development of short-term memory loss in recent months.) - Patient Review Patient Review: Problems were reviewed with the patient during this visit. Medications were reviewed with the patient during this visit. Allergies were reviewed this patient during this visit. Pertinent Tests Reviewed: All pertitent test for this patient were reviewed. - Assessment & Plan Assessment and Plan: 75-year-old female with no reported significant past medical or surgical history other than cerebrovascular disease for which she is pending intervention at [facility] who has change in bowel habits and is indicated for indicated for diagnostic. Symptoms are as follows change in bowel movements and difficulty with defecation. Risks and benefits discussed at length. Informed consent obtained. Risks include but are not limited to, bleeding, infection, perforation, missed lesions, injury to local structures, need for further surgeries, and the periprocedural/sedation risks of heart attack stroke and . Patient was advised if any concerning areas were noted these would be sampled if too big to resect or performed for excision if within reasonable limits for endoscopic intervention. Please note that voice recognition software was used to transcribe this note and inadvertent errors might persist in spite of review and editing. I am obliged to you for your attention. I am thankful to you for allowing me to participate with you in this care of this patient.
--- NOTE | 2020-08-14 12:39 | ANESTHESIA ---
Pre-Anesthesia VS, & Labs - Diagnosis change in bowel habits - Procedure colonoscopy Vital Signs: Temp Pulse Resp BP Pulse Ox 36.0 C L 61 16 127/67 97 08/14/20 12:36 08/14/20 12:36 08/14/20 12:36 08/14/20 12:36 08/14/20 12:36 Height: 5 ft 7 in Weight (kg): 84 kg Body Mass Index: 29.0 BMI Classification: Overweight - NPO >8 hours - Is Patient ?: No Home Medications and Allergies Allergies/Adverse Reactions: Allergies Allergy/AdvReac Type Severity Reaction Status Date / Time No Known Drug Allergies Allergy Verified 07/26/20 13:01 Anes History & Medical History - Anesthetic History Anesthesia Complications: reports: No previous complications - Medical History Cardiovascular: reports: None Pulmonary: reports: None Gastrointestinal: reports: C.difficile Urinary: reports: None Musculoskeletal: reports: None Endocrine/Autoimmune: reports: None Blood Disorders: reports: None Skin: reports: None, Other Smoking Status: Former smoker - Surgical History General: Colonoscopy Gynecologic: Other Orthopedic: Other Exam General: Alert Dental: Dentures full Upper, Dentures full Lower Mallampati classification: II Respiratory: Lungs clear Cardiovascular: Regular rate Plan Anesthesia Type: MAC Consent for Procedure(s) Verified and Reviewed: Yes Code Status: Attempt Resuscitation ASA classification: 2-Mild systemic disease Is this case an emergency?: No
[2020-08-14] MEDS ORDERED: PROPOFOL 500 MG/50 ML 1,000 MG/100 ML VIAL ONE (12:43)
[2020-08-14] MEDS ORDERED: LIDOCAINE-MPF 2% 5 ML VIAL ONE (12:53)
[2020-08-14 13:21] VITALS: BP 110/95
--- NOTE | 2020-08-14 13:45 | ANESTHESIA POST OP EVALUATION ---
Anesthesia Post Eval - Post Anesthesia Eval Vitals: Last Vital Signs Temp 36.8 C 08/14/20 12:59 Pulse 58 L 08/14/20 13:19 Resp 15 08/14/20 13:19 BP 110/95 H 08/14/20 13:19 Pulse Ox 99 08/14/20 13:19 CV Function Including HR & BP: positive: Stable Pain Control: positive: Satisfactory Nausea & Vomiting: positive: Negative Mental Status: positive: Baseline Respiratory Status: Airway Patent Hydration Status: Satisfactory Anesthesia Complications: positive: None
== END 2020-08-14 10:44 | disposition home or self-care (01) ==
LOC: SDS 10:43
PROVIDERS: ATTEND Surgery
DX: R19.4 Change in bowel habit (principal); R10.11 Right upper quadrant pain; R41.82 Altered mental status, unspecified; I67.9 Cerebrovascular disease, unspecified; Z87.891 Personal history of nicotine dependence
CPT/HCPCS: 45330; J3010; J7120

== ENCOUNTER 2020-08-16 11:35 | Day surgery (SDC) | payer MEDICARE, OTHER ==
[2020-08-16] MEDS ORDERED: LACTATED RINGERS 1,000 ML IV ONE (12:33)
--- NOTE | 2020-08-16 12:57 | ANESTHESIA ---
Pre-Anesthesia VS, & Labs - Diagnosis change in bowel habits - Procedure colonoscopy Vital Signs: Temp Pulse Resp BP Pulse Ox 36 C L 66 18 123/76 100 08/16/20 11:45 08/16/20 11:45 08/16/20 11:45 08/16/20 11:45 08/16/20 11:45 Height: 5 ft 7.5 in Weight (kg): 82.7 kg Body Mass Index: 28.1 BMI Classification: Overweight - NPO >8 hours - Is Patient ?: No Home Medications and Allergies Allergies/Adverse Reactions: Allergies Allergy/AdvReac Type Severity Reaction Status Date / Time No Known Drug Allergies Allergy Verified 07/26/20 13:01 Anes History & Medical History - Anesthetic History Anesthesia Complications: reports: No previous complications - Medical History Cardiovascular: reports: None Pulmonary: reports: None Gastrointestinal: reports: C.difficile Urinary: reports: None Neuro: reports: Other (undergoing evaluation of cerebral vasculature) Musculoskeletal: reports: None Endocrine/Autoimmune: reports: None Blood Disorders: reports: None Skin: reports: None, Other Smoking Status: Former smoker - Surgical History General: Colonoscopy Gynecologic: Other Orthopedic: Other Exam General: Alert Dental: WNL Neck Mobility: Normal Mallampati classification: II Respiratory: Lungs clear Cardiovascular: Regular rate Plan Anesthesia Type: MAC Consent for Procedure(s) Verified and Reviewed: Yes Code Status: Attempt Resuscitation ASA classification: 2-Mild systemic disease Is this case an emergency?: No
[2020-08-16] MEDS ORDERED: PROPOFOL 500 MG/50 ML 500 MG/50 ML VIAL ONE (13:35)
[2020-08-16] MEDS ORDERED: PROPOFOL 200 MG/20 ML VIAL IVP ONE (14:04)
[2020-08-16] MEDS ORDERED: LACTATED RINGERS 550 ML IV ONE (14:22)
[2020-08-16] MEDS ORDERED: GLYCOPYRROLATE 1 MG/5 ML VIAL ONE (14:25)
--- NOTE | 2020-08-16 14:41 | PROVIDER PROGRESS NOTE ---
Progress Note 75-year-old female with likely colonic inertia who has had acute change in bowel habits. Has undergone CT scan which showed significant stool burden. She was scheduled for colonoscopy at which time she underwent 2-day prep. At the time of her initial attempted lower endoscopic evaluation she had extensive retained impacted stool precluding endoscopic evaluation beyond the splenic flexure. She was reattempted for colonoscopy today with the following findings: 1. Significantly angular, tortuous, redundant colon for which multiple postural changes, stiffening wire, and counterpressure was necessary to achieve the ascending colon. 2. The cecum was not formally achieved though was seen in the distance. In the setting and over the concern for missed lesion in this patient who is never undergone endoscopic evaluation historically, clip was placed once extent able to be achieved was reached. This would afford focus of radiographic evaluation for the remnant colon that had yet been surveyed. 3. No extensive diverticulosis appreciated. 4. Two 1 cm rectosigmoid polyps removed by hot snare polypectomy. 5. Internal hemorrhoids and skin tags/hypertrophic papilla appreciated. Given the inability to fully evaluate the colon to the cecum as would have been confirmed by intubation of the ileocecal valve, and what was likely 1 to 2 feet of colon that we could not formally evaluate, I have spoken to radiology about rectal contrast to rule out any occult lesions and assure full evaluation if not through surrogate. Please note that voice recognition software was used to transcribe this note and inadvertent errors might persist in spite of review and editing. I am obliged to you for your attention. I am thankful to you for allowing me to participate with you in this care of this patient.
[2020-08-16] MEDS ORDERED: IOVERSOL 320 100 ML VIAL IVP ONE ×2 (14:45→16:40)
[2020-08-16] MEDS ORDERED: IOVERSOL 320 50 ML VIAL ONE (14:45)
--- NOTE | 2020-08-16 14:50 | ANESTHESIA POST OP EVALUATION ---
Anesthesia Post Eval - Post Anesthesia Eval Vitals: Last Vital Signs Temp 36.0 C L 08/16/20 14:22 Pulse 81 08/16/20 14:35 Resp 16 08/16/20 14:35 BP 178/85 H 08/16/20 14:35 Pulse Ox 99 08/16/20 14:35 CV Function Including HR & BP: positive: Stable Pain Control: positive: Satisfactory Nausea & Vomiting: positive: Negative Mental Status: positive: Patient Participates Respiratory Status: Airway Patent Hydration Status: Satisfactory Anesthesia Complications: positive: None
[2020-08-16 15:18] VITALS: BP 172/100
--- NOTE | 2020-08-16 16:30 | CT Report ---
PROCEDURE: Abdomen/Pelvis W INDICATIONS: colonic inertia, incomplete colonoscopy CONTRAST: IV CONTRAST: Optiray 320 ml: 100 PO CONTRAST: Optiray 320 ml50 TECHNIQUE: After the administration of intravenous, oral, and rectal contrast, 5 mm thick sections acquired from the diaphragms to the symphysis. 5 mm thick coronal and sagittal reformats were acquired. For radi ation dose reduction, the following was used: automated exposure control, adjustment of mA and/or kV according to patient size. COMPARISON: CT abdomen pelvis 07/26/2020. FINDINGS: Image quality: Excellent. ABDOMEN: Lung bases: There is mild atelectasis and scarring the lung bases. Heart size is normal. Solid organs: Evaluation of the liver demonstrates no focal hepatic lesions. Gallbladder appears wit hin normal limits without calcified gallstones. Biliary system is non dilated. The spleen is normal in size. Pancreas enhances normally without peripancreatic fat stranding or fluid collections. There is nodular thickening of the left adrenal gland measuring up to 1.1 cm with indeterminate attenuation values. Kidneys demonstrate no hydronephrosis. Peritoneum and bowel: Small bowel loops demonstrate normal wall thickness and caliber. A rectal tube is present with rectal contrast distending the colon proximally to the level of the mid ascending col on. There is segmental nondistention of the distal descending and proximal sigmoid colon. The sigmoid colon is tortuous in appearance. No discrete intraluminal mass identified within the opacified loops of bowel. There is a linear filling defect within the mid transverse colon suggestive of residual st ool. The cecum and proximal ascending colon are nonopcified limiting evaluation. No free fluid or air . Nodes and vessels: No retroperitoneal or mesenteric adenopathy by size criteria. Aorta and inferior vena cava are normal in size. Miscellaneous: No ventral hernias. PELVIS: Genitourinary: Bladder wall thickness is normal. Miscellaneous: No inguinal hernias or adenopathy. Bones: No suspicious bony lesions. No vertebral body compression fractures. IMPRESSION: 1. No discrete intraluminal mass identified within the opacified colon. A nondisplaced segment involv ing the distal descending and proximal sigmoid colon is incompletely evaluated due to nondistention l ikely due to peristaltic activity. The proximal descending colon are not opacified limiting evaluatio n. 2. Indeterminate nodular thickening of the left adrenal gland. Further evaluation may be obtained wit h an adrenal protocol MRI or CT if clinically indicated. Reviewed by: Donte Zavala MD on 08/16/2020 4:28 PM PST Approved by: Donte Zavala MD on 08/16/2020 4:28 PM PST Station ID: [id number]
[2020-08-16] MEDS ORDERED: IOVERSOL 320 50 ML VIAL PO ONE (16:38)
--- OUTSIDE RECORDS SUMMARY | 2020-08-22 01:09 | EXTERNAL MEDICAL SUMMARY RPT | Continuity of Care Document ---
:1945 Demographics Phone Unavailable Preferred Language Latvian Marital Status Unknown Shinto Affiliation Unknown Race Unknown Ethnic Group Unknown Author Organization [place] Address [address] [place] [address] Phone Care Team Providers Name Role Phone OR Unavailable Unavailable Chriss Unavailable Unavailable Unavailable Unavailable Savage Unavailable Unavailable FRED Unavailable Unavailable Problems date description facility Finding [facility] Ex-smoker (finding) [facility] 2016-03-27 18:56 PLEURODYNIA [facility] 2017-04-28 14:46 CHEST PAIN, UNSPECIFIED [facility] 2017-04-28 14:46 PERSONAL HISTORY OF 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 2020-03-06 10:30 [facility] S[facility] OTHER VIRAL DISEASES 2020-07-14 07:37 CARDIAC MURMUR, UNSPECIFIED [facility] 2020-07-14 07:37 OTH SYMPTOMS AND SIGNS INVOLVING [facility] THE CIRC AND RESP SYSTEMS 2020-07-14 07:37 RIGHT UPPER QUADRANT PAIN [facility] 2020-07-14 07:37 OTHER AMNESIA [facility] 2020-07-14 08:45 RIGHT UPPER QUADRANT PAIN [facility] 2020-07-16 11:43 CARDIAC MURMUR, UNSPECIFIED [facility] 2020-07-16 11:43 OTH SYMPTOMS AND SIGNS INVOLVING [facility] THE CIRC AND RESP SYSTEMS 2020-07-16 11:43 RIGHT UPPER QUADRANT PAIN [facility] 2020-07-16 11:43 OTHER AMNESIA [facility] 2020-07-17 07:22 PULMONARY HYPERTENSION, [facility] UNSPECIFIED 2020-07-17 07:22 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 2020-07-17 07:22 CARDIOMEGALY [facility] 2020-07-17 07:22 BRADYCARDIA, UNSPECIFIED [facility] 2020-07-17 07:22 CARDIAC MURMUR, UNSPECIFIED [facility] 2020-07-17 07:22 OTH SYMPTOMS AND SIGNS INVOLVING [facility] THE CIRC AND RESP SYSTEMS 2020-07-17 07:22 RIGHT UPPER QUADRANT PAIN [facility] 2020-07-17 07:22 OTHER [facility] 2020-07-17 08:00 CARDIAC MURMUR, UNSPECIFIED [facility] 2020-07-17 08:00 OTH SYMPTOMS AND SIGNS [facility] THE CIRC AND RESP SYSTEMS 2020-07-17 08:00 RIGHT UPPER QUADRANT PAIN [facility] 2020-07-17 08:00 OTHER [facility]IA [facility] 2020-07-26 12:40 CONSTIPATION, UNSPECIFIED [facility] 2020-07-26 12:40 RIGHT UPPER QUADRANT PAIN [facility] 2020-07-26 12:40 PERSONAL HISTORY OF 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[facility] DEPENDENCE 2020-07-31 09:30 OTHER [facility]ESIA [facility] 2020-08-06 00:00:00 Solitary cyst of breast [facility] 2020-08-06 00:00:00 Undiagnosed cardiac murmurs [facility] 2020-08-06 00:00:00 Other symptoms [facility] digestive system 2020-08-06 00:00:00 Personal history of other [facility] diseases of digestive system 2020-08-06 00:00:00 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 [facility] 2020-08-06 00:00:00 Constipation, unspecified [facility] 2020-08-06 00:00:00 Chondrocostal junction syndrome [facility] 2020-08-06 00:00:00 [facility] 2020-08-06 00:00:00 Personal history of other [facility] infectious and parasitic diseases 2020-08-06 00:00:00 H/O: [facility] 2020-08-06 00:00:00 H/O: gastrointestinal disease [facility] 2020-08-06 00:00:00 Cyst of breast [facility] 2020-08-06 00:00:00 Amnesia [facility] 2020-08-06 00:00:00 Hyperlipidemia [facility] 2020-08-06 00:00:00 Altered bowel function [facility] 2020-08-06 00:00:00 Heart murmur [facility] 2020-08-06 00:00:00 Other and unspecified [facility] hyperlipidemia 2020-08-06 00:00:00 Other [facility] disorders due to conditions classified elsewhere 2020-08-06 00:00:00 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-08-06 00:00:00 Memory loss [facility] 2020-08-06 00:00:00 Abnormal involuntary [facility] 2020-08-06 00:00:00 Personal history of other [facility] specified diseases 2020-08-06 00:00:00 Hyperlipidemia, unspecified [facility] 2020-08-06 00:00:00 Unspecified dementia without [facility] behavioral disturbance 2020-08-06 00:00:00 Cardiac murmur, unspecified [facility] 2020-08-06 00:00:00 Change in bowel habit [facility] 2020-08-06 00:00:00 Tremor, unspecified [facility] 2020-08-06 00:00:00 Other amnesia [facility] 2020-08-06 00:00:00 Personal history of other [facility] diseases of the digestive system 2020-08-06 00:00:00 Constipation [facility] 2020-08-06 00:00:00 Tremor [facility] 2020-08-06 00:00:00 Dementia [facility] 2020-08-06 00:00:00 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[facility] 2020-08-06 11:12 OCCLUSION AND STENOSIS OF RIGHT [facility] VERTEBRAL ARTERY 2020-08-06 11:12 OCCLUSION AND STENOSIS OF [facility] BILATERAL CAROTID ARTERIES 2020-08-06 11:12 OTHER AMNESIA [facility] 2020-08-06 14:00 OTHER AMNESIA [facility] 2020-08-08 00:00:00 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 [facility] 2020-08-08 00:00:00 Former smoker [facility] 2020-08-08 00:00:00 Cerebral artery occlusion, [facility] unspecified, with cerebral infarction 2020-08-08 00:00:[address] [facility] 2020-08-08 00:00:00 Details of drug misuse behavior [facility] Allergies date description facility ADHESIVE \T\ TAPE [facility] ATORVASTATIN [facility] CARISOPRODOL [facility] ERYTHROMYCIN BASE [facility] HYDROCODONE [facility] POVIDONE IODINE [facility] ROFECOXIB [facility] SULFAMETHOXAZOLE W/TRIMETHOPRIM [facility] (CO-TRIMOXAZOLE) NABUMETONE [facility] PHENYTOIN SODIUM EXTENDED [facility] NO KNOWN ENVIRONMENTAL ALLERGIES [facility] PENICILLINS [facility] SULFA (SULFONAMIDE ANTIBIOTICS) [facility] NO KNOWN ALLERGIES [facility]IN [facility]OL [facility] ZIPRASIDONE HCL [facility] No Known Drug Allergies [facility] No Known Drug Allergies [facility] HYDROCODONE [facility] NO KNOWN ENVIRONMENTAL ALLERGIES [facility] cycline drugs [facility] NO KNOWN ALLERGIES [facility] SULFA (SULFONAMIDE ANTIBIOTICS) [facility] NO KNOWN ALLERGIES [facility] LATEX, NATURAL RUBBER [facility] SHELLFISH CONTAINING PRODUCTS [facility] WHEAT [facility] DIAZEPAM [facility] PROCHLORPERAZINE [facility]PHINE [facility] CODEINE [facility] OXYCODONE [facility] PENICILLIN [facility] ORPHENADRINE [facility] GABAPENTIN [facility] METOCLOPRAMIDE [facility] DIPHENHYDRAMINE [facility] KETOROLAC [facility] IODINE [facility] ROSUVASTATIN [facility] EZETIMIBE-SIMVASTATIN [facility] Darvon [facility] No Known Drug Allergies [facility] Medications date description facility 2020-08-09 00:00:00 [facility] 2020-08-09 00:00:00 [facility] 2020-08-09 00:00:00 NA SULFATE-K SULFATE-MG SULF [facility] 2020-08-09 00:00:00 NA SULFATE-K SULFATE-MG SULF [facility] Procedures date description facility 2020-07-04 00:00:00 [facility] Results Social History date description facility [id number] Ex-smoker (finding) [facility] date description facility 2020-08-08 00:00:00 [facility] Social History date description facility [id number] Ex-smoker (finding) [facility] date description facility 2020-08-08 00:00:00 [facility] date description facility [id number]
== END 2020-08-16 11:36 | disposition home or self-care (01) ==
LOC: SDS 11:35
PROVIDERS: ATTEND Surgery
PROC: 0DBN8ZZ Excision of Sigmoid Colon, Via Natural or Artificial Opening Endoscopic (ICD-10-PCS; principal; 2020-08-16 12:45)
DX: K59.00 Constipation, unspecified (principal); K59.9 Functional intestinal disorder, unspecified; D12.2 Benign neoplasm of ascending colon; K64.8 Other hemorrhoids; K64.4 Residual hemorrhoidal skin tags; I67.9 Cerebrovascular disease, unspecified; R41.3 Other amnesia; E66.3 Overweight; Z68.28 Body mass index [BMI] 28.0-28.9, adult; Z87.891 Personal history of nicotine dependence
CPT/HCPCS: 45385; 74177; J7120; Q9967; 88305

== ENCOUNTER 2020-09-03 08:00 | Outpatient (CLI) | payer MEDICARE, OTHER ==
[2020-09-03 16:01] LABS: BASOPHILS % (AUTO) 0.6 %; EOSINOPHILS % (AUTO) 0.8 %; HGB - HEMOGLOBIN 13.3 g/dL (12.0-16.0); LYMPHOCYTES # (AUTO) 2.2 10^3/uL (1.5-3.5); LYMPHOCYTES % (AUTO) 46.4 %; MEAN CORPUSCULAR HGB CONC 31.5 g/dL (32.0-36.0); MONOCYTES # (AUTO) 0.5 10^3/uL (0.0-1.0); NEUTROPHILS % (AUTO) 41.4 %; PLT - PLATELET COUNT 245 10^3/uL (130-450); RED BLOOD COUNT 4.44 10^6/uL (4.20-5.40); RED CELL DISTRIBUTION WIDTH 13.8 % (12.0-15.0); WHITE BLOOD COUNT 4.8 x10^3/uL (4.8-10.8)
[2020-09-03 16:14] LABS: ALBUMIN 4.7 g/dL (3.2-5.5); ALBUMIN/GLOBULIN RATIO 1.6 (1.0-2.2); BILIRUBIN,TOTAL 0.6 mg/dL (0.2-1.0); CALCIUM 9.6 mg/dL (8.5-10.3); CREATININE 0.8 mg/dL (0.4-1.0); TOTAL PROTEIN 7.6 g/dL (6.7-8.2)
== END 2020-09-03 23:59 | disposition home or self-care (01) ==
LOC: LAB 08:00
PROVIDERS: ATTEND Surgery
DX: R10.11 Right upper quadrant pain (principal)
CPT/HCPCS: 36415; 80053; 85025

== ENCOUNTER 2020-10-06 07:28 | Outpatient (CLI) | payer MEDICARE, OTHER ==
--- NOTE | 2020-10-06 12:13 | Ultrasound Report ---
PROCEDURE: Abdomen Limited INDICATIONS: ABD PAIN, RUQ TECHNIQUE: Real-time focused scanning was performed of the abdomen, with image documentation. COMPARISON: CT 08/16/2020, ultrasound, 07/14/2020 FINDINGS: The liver demonstrates normal size and echogenicity. The liver demonstrates a coarsened ec hotexture. No liver lesions are detected. No gallstones or sludge can be seen. The gallbladder wall does not appear thickened. There is no spec ific pericholecystic fluid. The sonographic Delgado's sign is negative. No biliary ductal dilatation is seen. The common bile duct measures 6 mm. The visualized pancreas is within normal limits. The visualized right kidney is unremarkable. IMPRESSION: The gallbladder demonstrates a normal sonographic appearance. No biliary dilatation is seen. Reviewed by: Dwayne Gutierrez MD on 10/06/2020 11:12 AM [facility] Approved by: Dwayne Gutierrez MD on 10/06/2020 11:12 AM [facility] Station ID: [id number]
== END 2020-10-06 07:29 | disposition home or self-care (01) ==
LOC: DI 07:28
PROVIDERS: ATTEND Surgery
DX: R10.11 Right upper quadrant pain (principal)

== ENCOUNTER 2020-11-27 18:59 | Outpatient (CLI) | payer MEDICARE, OTHER | END 2020-11-27 19:00 | disposition home or self-care (01) | LOC: COV 18:59 | PROVIDERS: ATTEND Family Medicine | DX: Z20.822 Contact with and (suspected) exposure to COVID-19 (principal) ==

== ENCOUNTER 2021-09-02 14:45 | Emergency (ER) | payer MEDICARE, OTHER ==
[2021-09-02 15:01] VITALS: BP 140/72
[2021-09-02 15:41] LABS: BASOPHILS % (AUTO) 0.5 %; EOSINOPHILS # (AUTO) 0.1 10^3/uL (0.0-0.7); EOSINOPHILS % (AUTO) 1.2 %; HCT - HEMATOCRIT 39.6 % (37.0-47.0); HGB - HEMOGLOBIN 13.2 g/dL (12.0-16.0); LYMPHOCYTES # (AUTO) 2.2 10^3/uL (1.5-3.5); LYMPHOCYTES % (AUTO) 52.4 %; MEAN CORPUSCULAR HEMOGLOBIN 31.1 pg (27.0-31.0); MEAN CORPUSCULAR HGB CONC 33.3 g/dL (32.0-36.0); MEAN CORPUSCULAR VOLUME 93.4 fL (81.0-99.0); MEAN PLATELET VOLUME 9.1 fL (7.9-10.8); MONOCYTES # (AUTO) 0.4 10^3/uL (0.0-1.0); MONOCYTES % (AUTO) 10.2 %; NEUTROPHILS # (AUTO) 1.5 10^3/uL (1.5-6.6); NEUTROPHILS % (AUTO) 35.5 %; PLT - PLATELET COUNT 243 10^3/uL (130-450); RED BLOOD COUNT 4.24 10^6/uL (4.20-5.40); RED CELL DISTRIBUTION WIDTH 14.3 % (12.0-15.0); WHITE BLOOD COUNT 4.2 x10^3/uL (4.8-10.8)
[2021-09-02 16:11] LABS: ALBUMIN 4.1 g/dL (3.2-5.5); ALBUMIN/GLOBULIN RATIO 1.4 (1.0-2.2); BILIRUBIN,TOTAL 0.4 mg/dL (0.2-1.0); CALCIUM 9.3 mg/dL (8.5-10.3); CREATININE 0.9 mg/dL (0.4-1.0); POTASSIUM 4.3 mmol/L (3.5-5.0); TOTAL PROTEIN 7.1 g/dL (6.7-8.2)
== END 2021-09-02 15:58 | disposition left against medical advice (07) ==
LOC: ED 14:45
DX: Z53.21 Procedure and treatment not carried out due to patient leaving prior to being seen by health care provider (principal)
CPT/HCPCS: 36415; 80053; 83690; 85025

== ENCOUNTER 2021-09-03 08:08 | Observation (INO) | payer MEDICARE, OTHER ==
--- NOTE | 2021-09-03 08:36 | ED Physician Documentation ---
PD HPI ABD PAIN - Stated complaint Stated Complaint: CONSTIPATIONS,ABD CRAMPS - History obtained from History obtained from: Patient - History of Present Illness Timing - onset: How many days ago (5-6) Timing - duration: Days (5-6) Timing - details: Gradual onset, Still present Quality: Cramping, Aching, Fullness/distended (feeling full in lower abdomen), Pain Location: Periumbilical, Other (lower abd) Radiation: No: Chest, Left flank, Right flank Improved by: Other (has eaten less for 4-5 days as feeling bloated. No vomiting. Had not had BM for 6-7 days. Was straining to try to have BM. Was noting lump above umbilicus, but not tender there.) Worsened by: Eating Associated symptoms: Nausea, Constipation, Loss of appetite. No: Fever, Vomiting, Diarrhea, Dysuria Similar symptoms before: Has not had sx before Recently seen: Not recently seen Review of Systems Constitutional: denies: Fever, Chills Nose: denies: Rhinorrhea / runny nose, Congestion Throat: denies: Sore throat Cardiac: denies: Chest pain / pressure Respiratory: denies: Cough GI: reports: Abdominal Pain, Abdominal Swelling, Nausea, Constipation. denies: Vomiting, Bloody / black stool : denies: Dysuria, Frequency Neurologic: reports: Generalized weakness. denies: Near syncope, Altered mental status, Headache PD PAST MEDICAL HISTORY - Past Medical History Cardiovascular: None Respiratory: None Neuro: Other (undergoing evaluation of cerebral vasculature) Endocrine/Autoimmune: None GI: C.difficile : None Psych: None Musculoskeletal: None Derm: None, Other - Past Surgical History Past Surgical History: Yes General: Colonoscopy Ortho: Other /[employer]: Other - Present Medications Home Medications: Ambulatory Orders Medication Instructions Recorded Confirmed Clopidogrel [Plavix] 75 mg PO DAILY 09/03/21 09/03/21 Donepezil [Aricept] 10 mg PO QPM 09/03/21 09/03/21 Gabapentin [Neurontin] 300 mg PO TID 09/03/21 09/03/21 Valacyclovir HCl [Valtrex] 1,000 mg PO DAILY PRN 09/03/21 09/03/21 - Allergies Allergies/Adverse Reactions: Allergies Allergy/AdvReac Type Severity Reaction Status Date / Time No Known Drug Allergies Allergy Verified 09/03/21 08:37 - Social History Does the pt smoke?: No Smoking Status: Former smoker Does the pt drink ETOH?: No Does the pt have substance abuse?: No - Immunizations Immunizations are current?: Yes - POLST Patient has POLST: No PD ED PE NORMAL - Vitals Vital signs reviewed: Yes - General General: Alert and oriented X 3, No acute distress, Well developed/nourished - HEENT HEENT: Pharynx benign. No: Moist mucous membranes - Neck Neck: Supple, no meningeal sign, No adenopathy - Cardiac Cardiac: RRR, No murmur - Respiratory Respiratory: Clear bilaterally - Abdomen Abdomen: Soft, No organomegaly, Other (To moderate fullness in the lower abdomen. General nonfocal tenderness in the lower abdomen more to the left than the right. There is a supraumbilical small hernia that feels reducible and is only minimal tender.). No: Normal bowel sounds (increased) - Female Female : Deferred - Rectal Rectal: Deferred - Back Back: No CVA TTP - Derm Derm: Normal color, Warm and dry - Extremities Extremities: Normal ROM s pain, No edema, No calf tenderness / cord - Neuro Neuro: Alert and oriented X 3, No motor deficit, Normal speech Eye Opening: Spontaneous Motor: Obeys Commands Verbal: Oriented GCS Score: 15 Results - Vitals Vitals: Vital Signs - 24 hr 09/03/21 09/03/21 09/03/21 08:28 10:06 13:52 Temperature 36.6 C 36.8 C Heart Rate 55 L 58 L 63 Respiratory 16 18 16 Rate Blood Pressure 132/77 H 149/60 H 142/77 H O2 Saturation 100 100 100 09/03/21 09/03/21 09/03/21 15:20 15:25 15:30 Temperature 36.2 C L 36.3 C L 36.4 C L Heart Rate 61 60 63 Respiratory 13 15 18 Rate Blood Pressure 112/54 L 114/64 128/62 O2 Saturation 96 97 96 Oxygen O2 Source Room air - Labs Labs: Laboratory Tests 09/03/21 09/03/21 09/03/21 09:07 09:07 10:42 WBC 3.3 L RBC 4.06 L Hgb 12.3 Hct 37.7 MCV 92.9 MCH 30.3 MCHC 32.6 RDW 14.1 Plt Count 210 MPV 8.9 Neut # (Auto) 1.1 L Lymph # (Auto) 1.8 Alfalfa # (Auto) 0.4 Eos # (Auto) 0.0 Baso # (Auto) 0.0 Absolute Nucleated RBC 0.00 Nucleated RBC % 0.0 Sodium 134 L Potassium 4.1 Chloride 102 Carbon Dioxide 26 Anion Gap 6.0 BUN 17 Creatinine 0.8 Estimated GFR (MDRD) 69 L Glucose 102 H Calcium 8.5 Total Bilirubin < 0.2 L AST 14 ALT 15 Alkaline Phosphatase 61 Total Protein 6.5 L Albumin 3.9 Globulin 2.6 Albumin/Globulin Ratio 1.5 Lipase 29 Urine Color YELLOW Urine Clarity CLEAR Urine pH 5.5 Ur Specific [place] 1.020 Urine Protein NEGATIVE Urine Glucose (UA) NEGATIVE Urine Ketones NEGATIVE Urine Occult Blood NEGATIVE Urine Nitrite NEGATIVE Urine Bilirubin NEGATIVE Urine Urobilinogen 0.2 (NORMAL) Ur Leukocyte Esterase NEGATIVE Ur Microscopic Review NOT INDICATED Urine Culture Comments NOT INDICATED Nasal Adenovirus (PCR) Nasal B. parapertussis DNA (PCR) Nasal Coronavir 229E PCR Nasal Coronavir HKU1 PCR Nasal Coronavir NL63 PCR Nasal Coronavir OC43 PCR Nasal Enterovir/Rhinovir PCR Nasal Influenza B PCR Nasal Influenza A PCR Nasal Parainfluen 1 PCR Nasal Parainfluen 2 PCR Nasal Parainfluen 3 PCR Nasal Parainfluen 4 PCR Nasal RSV (PCR) Nasal B.pertussis DNA PCR Nasal C.pneumoniae (PCR) Gerardo Human Metapneumo PCR Nasal M.pneumoniae (PCR) Nasal SARS-CoV-2 (PCR) 09/03/21 12:10 WBC RBC Hgb Hct MCV MCH MCHC RDW Plt Count MPV Neut # (Auto) Lymph # (Auto) Alfalfa # (Auto) Eos # (Auto) Baso # (Auto) Absolute Nucleated RBC Nucleated RBC % Sodium Potassium Chloride Carbon Dioxide Anion Gap BUN Creatinine Estimated GFR (MDRD) Glucose Calcium Total Bilirubin AST ALT Alkaline Phosphatase Total Protein Albumin Globulin Albumin/Globulin Ratio Lipase Urine Color Urine Clarity Urine pH Ur Specific [place] Urine Protein Urine Glucose (UA) Urine Ketones Urine Occult Blood Urine Nitrite Urine Bilirubin Urine Urobilinogen Ur Leukocyte Esterase Ur Microscopic Review Urine Culture Comments Nasal Adenovirus (PCR) NOT DETECTED Nasal B. parapertussis DNA (PCR) NOT DETECTED Nasal Coronavir 229E PCR NOT DETECTED Nasal Coronavir HKU1 PCR NOT DETECTED Nasal Coronavir NL63 PCR NOT DETECTED Nasal Coronavir OC43 PCR NOT DETECTED Nasal Enterovir/Rhinovir PCR NOT DETECTED Nasal Influenza B PCR NOT DETECTED Nasal Influenza A PCR NOT DETECTED Nasal Parainfluen 1 PCR NOT DETECTED Nasal Parainfluen 2 PCR NOT DETECTED Nasal Parainfluen 3 PCR NOT DETECTED Nasal Parainfluen 4 PCR NOT DETECTED Nasal RSV (PCR) NOT DETECTED Nasal B.pertussis DNA PCR NOT DETECTED Nasal C.pneumoniae (PCR) NOT DETECTED Gerardo Human Metapneumo PCR NOT DETECTED Nasal M.pneumoniae (PCR) NOT DETECTED Nasal SARS-CoV-2 (PCR) NOT DETECTED - Rads (name of study) abd/pelvic CT Radiology: Prelim report reviewed (Copious stool in the distal colon. Similar to prior studies. New finding of swirling of the mesentery with dilated loop of bowel in a unusual pattern concerning for volvulus. Periumbilical hernia soft tissue containing. ), See rad report PD MEDICAL DECISION MAKING - ED course Complexity details: reviewed results, considered differential, d/w patient, d/w library sales consultant (Dr. Gage, surgery, will see patient. ) Departure - Departure Disposition: 66 [facility] DC/Xfer Clinical Impression: Volvulus of sigmoid colon Abdominal pain Qualifiers: Abdominal location: lower abdomen, unspecified Qualified Code(s): R10.30 - Lower abdominal pain, unspecified Condition: Stable Record reviewed to determine appropriate education?: Yes Discharge Date/Time: 09/03/21 14:58
[2021-09-03] MEDS ORDERED: KETOROLAC 15 MG/ML VIAL IVP STA (08:56)
[2021-09-03] MEDS ORDERED: MORPHINE 10 MG/ML VIAL IVP STA (08:56)
[2021-09-03] MEDS ORDERED: SODIUM CHLORIDE 0.9% 1,000 ML IV STA (08:57)
[2021-09-03 09:14] LABS: BASOPHILS % (AUTO) 0.6 %; EOSINOPHILS % (AUTO) 1.2 %; HCT - HEMATOCRIT 37.7 % (37.0-47.0); HGB - HEMOGLOBIN 12.3 g/dL (12.0-16.0); LYMPHOCYTES # (AUTO) 1.8 10^3/uL (1.5-3.5); LYMPHOCYTES % (AUTO) 53.6 %; MEAN CORPUSCULAR HEMOGLOBIN 30.3 pg (27.0-31.0); MEAN CORPUSCULAR HGB CONC 32.6 g/dL (32.0-36.0); MEAN CORPUSCULAR VOLUME 92.9 fL (81.0-99.0); MEAN PLATELET VOLUME 8.9 fL (7.9-10.8); MONOCYTES # (AUTO) 0.4 10^3/uL (0.0-1.0); MONOCYTES % (AUTO) 10.5 %; NEUTROPHILS # (AUTO) 1.1 10^3/uL (1.5-6.6); NEUTROPHILS % (AUTO) 34.1 %; PLT - PLATELET COUNT 210 10^3/uL (130-450); RED BLOOD COUNT 4.06 10^6/uL (4.20-5.40); RED CELL DISTRIBUTION WIDTH 14.1 % (12.0-15.0); WHITE BLOOD COUNT 3.3 x10^3/uL (4.8-10.8)
[2021-09-03 09:25] LABS: ALBUMIN 3.9 g/dL (3.2-5.5); ALBUMIN/GLOBULIN RATIO 1.5 (1.0-2.2); ALKALINE PHOSPHATASE 61 IU/L (42-121); ALT ALANINE AMINOTRANSFERASE 15 IU/L (10-60); AST ASPARTATE AMINOTRANSFERASE 14 IU/L (10-42); BILIRUBIN,TOTAL < 0.2 mg/dL (0.2-1.0); BUN - BLOOD UREA NITROGEN 17 mg/dL (6-20); CALCIUM 8.5 mg/dL (8.5-10.3); CARBON DIOXIDE - CO2 26 mmol/L (21-32); CHLORIDE 102 mmol/L (101-111); CREATININE 0.8 mg/dL (0.4-1.0); GFR - MDRD 69 (>89); GLUCOSE 102 mg/dL (70-100); LIPASE 29 U/L (22-51); POTASSIUM 4.1 mmol/L (3.5-5.0); SODIUM 134 mmol/L (135-145); TOTAL PROTEIN 6.5 g/dL (6.7-8.2)
[2021-09-03] MEDS ORDERED: iohexoL-300 100 ML VIAL ONE (10:06)
[2021-09-03 10:55] LABS: BILIRUBIN,URINE NEGATIVE (NEGATIVE); GLUCOSE, URINE (UA) NEGATIVE (NEGATIVE); KETONES,URINE (UA) NEGATIVE (NEGATIVE); LEUKOCYTE ESTERASE, URINE NEGATIVE (NEGATIVE); NITRITE,URINE NEGATIVE (NEGATIVE); OCCULT BLOOD,URINE NEGATIVE (NEGATIVE); PH,URINE 5.5 PH (5.0-7.5); PROTEIN,URINE NEGATIVE (NEGATIVE); UROBILINOGEN,URINE 0.2 (NORMAL) E.U./dL (NORMAL)
[2021-09-03 10:58] LABS: CLARITY,URINE CLEAR (CLEAR)
--- NOTE | 2021-09-03 11:22 | CT Report ---
PROCEDURE: Abdomen/Pelvis W INDICATIONS: LLQ Abdominal pain, diverticulitis suspected CONTRAST: IV CONTRAST: Isovue 300 ml: 100 PO CONTRAST: *NO PO CONTRAST TECHNIQUE: After the administration of weight appropriate dose of intravenous contrast, 5 mm thick sections acqu ired from the diaphragms to the symphysis. 5 mm thick coronal and sagittal reformats were acquired. For radiation dose reduction, the following was used: automated exposure control, adjustment of mA and/or kV according to patient size. COMPARISON: 08/16/2020 FINDINGS: Image quality: Excellent. ABDOMEN: Lung bases: Mild bibasilar atelectasis.. Heart size is normal. Very small hiatal hernia. Solid organs: Liver and spleen are normal in size and enhancement. Hepatic steatosis. Gallbladder i s unremarkable. Biliary system is non dilated. Pancreas enhances normally. Stable nodular thickeni ng of the left adrenal gland. No right-sided adrenal nodules. Kidneys demonstrate normal size and enh ancement, without hydronephrosis. Peritoneum and bowel: There is a large amount of fecal material seen throughout the redundant colon. No bowel wall thickening. No abnormal wall thickening seen. No definite mesenteric stranding. The ap pendix is normal. New compared to the prior study, there appears to be swirling of central abdominal mesenteric vessels anterior to the aorta near the level of the bifurcation. This may represent an int ernal hernia. No evidence for small bowel obstruction. No free fluid or air. Nodes and vessels: No retroperitoneal or mesenteric adenopathy by size criteria. Aorta and inferior vena cava are normal in size. Scattered atherosclerotic calcifications of the abdominal aorta and i liac vessels. Miscellaneous: There is a small 1.8 cm subcutaneous soft tissue fluid collection noted in the midline supraumbilical region possibly representing a small fluid-filled hernia sac of a fat-containing vent ral hernia as there appears to be a small neck leading to the ventral abdominal wall. PELVIS: Genitourinary: Bladder wall thickness is normal. Miscellaneous: No inguinal hernias or adenopathy. Bones: No suspicious bony lesions. No acute vertebral body compression fractures. IMPRESSION: 1. Large amount of fecal material seen throughout the colon without evidence for obstruction. There i s new swirling of mesenteric vessels within the central abdomen near the level of the aortic bifurcat ion not seen on comparison examinations with abnormal course of the sigmoid colon . Findings are conc erning for possible sigmoid volvulus. No evidence for mesenteric edema, stranding, or abnormal wall t hickening. Recommend close conical surveillance and surgical consultation. 2. Hepatic steatosis. 3. Small hiatal hernia. 4. Stable appearance of nodular thickening of the left adrenal gland. Further evaluation with adrenal protocol MRI or CT can be considered if clinically indicated. 5. Atherosclerotic vascular disease. Findings were discussed with Dr. Drummond telephonically at 1118 hrs. Reviewed by: Willie Carty MD on 09/03/2021 11:21 AM PST Approved by: Willie Carty MD on 09/03/2021 11:21 AM PST Station ID: [id number]
[2021-09-03] MEDS ORDERED: iohexoL-300 100 ML VIAL IVP ONE (12:06)
[2021-09-03 13:29] LABS: B. PARAPERTUSSIS- RESP PCR PAN NOT DETECTED; B. PERTUSSIS- RESP PCR PANEL NOT DETECTED; C. PNEUMONIAE- RESP PCR PANEL NOT DETECTED; CORONAVIRUS 229E-RESP PCR NOT DETECTED; CORONAVIRUS HKU1-RESP PCR NOT DETECTED; CORONAVIRUS NL63-RESP PCR NOT DETECTED; CORONAVIRUS OC43-RESP PCR NOT DETECTED; HUMAN METAPNEUMOVIRUS NOT DETECTED; INFLUENZA A- RESP PCR PANEL NOT DETECTED; INFLUENZA B - RESP PCR PANEL NOT DETECTED; M. PNEUMONIAE- RESP PCR PANEL NOT DETECTED; PARAINFLUENZA VIRUS 1 NOT DETECTED; PARAINFLUENZA VIRUS 2 NOT DETECTED; PARAINFLUENZA VIRUS 3 NOT DETECTED; PARAINFLUENZA VIRUS 4 NOT DETECTED; RHINOVIRUS/ENTEROVIRUS NOT DETECTED; RSV- RESP PCR PANEL NOT DETECTED; SARS-CoV-2 -RESP PCR PANEL NOT DETECTED
[2021-09-03] MEDS ORDERED: BUPIVACAINE 0.25% PF 30 ML VIAL ONE (13:50)
[2021-09-03] MEDS ORDERED: LIDOCAINE 2%-EPI 1:100000 20 ML MDV ONE (13:50)
--- NOTE | 2021-09-03 13:52 | HISTORY & PHYSICAL EXAMINATION ---
HPI - Admitted From Admitted from: ED - History Obtained From Records Reviewed: Old records reviewed History obtained from: Patient, Family (Chelly Corrales, patient's sister. I spoke with her per telephone) Exam limitations: Other (Patient reports she has memory issues.) - History of Present Illness Pain/Problem Location Description: Periumbilical pain Severity at the worst: reports: Moderate Pain Quality: reports: Sharp, Aching, Cramping HPI Comment/Other: Room with abdominal pain. She said that she was straining to have a bowel movement and noticed that her umbilicus became quite tender. She has a hernia actually above the umbilicus that she has had for many years but has not generally been tender in the past. She tells me that she has been trying to have a bowel movement for several days. She was seen in the past and told that she would need to stay on MiraLAX for life. She has weaned herself off MiraLAX hoping that she would need to take it because she started taking some new vitamins. Review of the record shows that she was seen here by approximately a year ago. At that time she was noted to have a very elongated and redundant sigmoid and transverse colon. Incomplete colonoscopy as the scope was inadequate to pass beyond hepatic flexure. CT scan did not reveal any lesions in the remainder of the colon. At the time of colonoscopy a year ago she did have 2 rectosigmoid polyps removed.She tells me that this is not a good time for her to have surgery because she needs to pay bills. She also relates to me that she is confused and that she has dementia and has had stroke problems in the past. While having this discussion, the patient calls her sister Chelly Corrales and she is included in discussion. Leanne says that her pain right now is mild she just feels sort of full.She is not sure because she has memory issues but she thinks it has been well over a week or so since her last real bowel movement. During that time, she has had little bits of liquid stool but no normal bowel movement that she can recall. 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 denies: Nausea, Vomiting - All Other Systems All Other Systems: reports: Reviewed and negative Exam - Vital Signs Reviewed Vital Signs: Yes Vital Signs: Vital Signs x48h Temp Pulse Resp BP Pulse Ox 09/03/21 10:06 36.8 C 58 L 18 149/60 H 100 09/03/21 08:28 36.6 C 55 L 16 132/77 H 100 - Physical Exam General Appearance: positive: No acute distress, Alert Eyes Bilateral: positive: Normal inspection, PERRL, EOMI ENT: positive: ENT inspection nml Neck: positive: Nml inspection Respiratory: positive: Chest non-tender, No respiratory distress Cardiovascular: positive: Regular rate & rhythm, No murmur Peripheral Pulses: positive: 0 Abdomen: positive: Tenderness, Other (Distended Hypoactive bowel tones). negative: Guarding, Rebound Back: positive: CVA tenderness (R), CVA tenderness (L) Skin: positive: Color nml, No rash Extremities: positive: Non-tender, Full ROM Neurologic/Psychiatric: positive: Oriented x3, CN's nml (2-12) Results - Lab Results Lab results reviewed: Yes Fish Bones: 09/03/21 09:07 09/03/21 09:07 Other Lab Results: Lab Results x24hrs 09/03/21 09/03/21 09/03/21 Range/Units 12:10 10:42 09:07 WBC (4.8-10.8) x10^3/uL RBC (4.20-5.40) 10^6/uL Hgb (12.0-16.0) g/dL Hct (37.0-47.0) % MCV (81.0-99.0) fL MCH (27.0-31.0) pg MCHC (32.0-36.0) g/dL RDW (12.0-15.0) % Plt Count (130-450) 10^3/uL MPV (7.9-10.8) fL Neut # (Auto) (1.5-6.6) 10^3/uL Lymph # (Auto) (1.5-3.5) 10^3/uL Williams # (Auto) (0.0-1.0) 10^3/uL Eos # (Auto) (0.0-0.7) 10^3/uL Baso # (Auto) (0.0-0.1) 10^3/uL Absolute Nucleated RBC x10^3/uL Nucleated RBC % /100WBC Sodium 134 L (135-145) mmol/L Potassium 4.1 (3.5-5.0) mmol/L Chloride 102 (101-111) mmol/L Carbon Dioxide 26 (21-32) mmol/L Anion Gap 6.0 (6-13) BUN 17 (6-20) mg/dL Creatinine 0.8 (0.4-1.0) mg/dL Estimated GFR (MDRD) 69 L (>89) Glucose 102 H (70-100) mg/dL Calcium 8.5 (8.5-10.3) mg/dL Total Bilirubin < 0.2 L (0.2-1.0) mg/dL AST 14 (10-42) IU/L ALT 15 (10-60) IU/L Alkaline Phosphatase 61 (42-121) IU/L Total Protein 6.5 L (6.7-8.2) g/dL Albumin 3.9 (3.2-5.5) g/dL Globulin 2.6 (2.1-4.2) g/dL Albumin/Globulin Ratio 1.5 (1.0-2.2) Lipase 29 (22-51) U/L Urine Color YELLOW Urine Clarity CLEAR (CLEAR) Urine pH 5.5 (5.0-7.5) PH Ur Specific Walford 1.020 (1.002-1.030) Urine Protein NEGATIVE (NEGATIVE) mg/dL Urine Glucose (UA) NEGATIVE (NEGATIVE) mg/dL Urine Ketones NEGATIVE (NEGATIVE) mg/dL Urine Occult Blood NEGATIVE (NEGATIVE) Urine Nitrite NEGATIVE (NEGATIVE) Urine Bilirubin NEGATIVE (NEGATIVE) Urine Urobilinogen 0.2 (NORMAL) (NORMAL) E.U./dL Ur Leukocyte Esterase NEGATIVE (NEGATIVE) Ur Microscopic Review NOT INDICATED Urine Culture Comments NOT INDICATED Nasal Adenovirus (PCR) NOT DETECTED Nasal B. parapertussis DNA (PCR) NOT DETECTED Nasal Coronavir 229E PCR NOT DETECTED Nasal Coronavir HKU1 PCR NOT DETECTED Nasal Coronavir NL63 PCR NOT DETECTED Nasal Coronavir OC43 PCR NOT DETECTED Nasal Enterovir/Rhinovir PCR NOT DETECTED Nasal Influenza B PCR NOT DETECTED Nasal Influenza A PCR NOT DETECTED Nasal Parainfluen 1 PCR NOT DETECTED Nasal Parainfluen 2 PCR NOT DETECTED Nasal Parainfluen 3 PCR NOT DETECTED Nasal Parainfluen 4 PCR NOT DETECTED Nasal RSV (PCR) NOT DETECTED Nasal B.pertussis DNA PCR NOT DETECTED Nasal C.pneumoniae (PCR) NOT DETECTED Gerardo Human Metapneumo PCR NOT DETECTED Nasal M.pneumoniae (PCR) NOT DETECTED Nasal SARS-CoV-2 (PCR) NOT DETECTED 09/03/21 Range/Units 09:07 WBC 3.3 L (4.8-10.8) x10^3/uL RBC 4.06 L (4.20-5.40) 10^6/uL Hgb 12.3 (12.0-16.0) g/dL Hct 37.7 (37.0-47.0) % MCV 92.9 (81.0-99.0) fL MCH 30.3 (27.0-31.0) pg MCHC 32.6 (32.0-36.0) g/dL RDW 14.1 (12.0-15.0) % Plt Count 210 (130-450) 10^3/uL MPV 8.9 (7.9-10.8) fL Neut # (Auto) 1.1 L (1.5-6.6) 10^3/uL Lymph # (Auto) 1.8 (1.5-3.5) 10^3/uL Williams # (Auto) 0.4 (0.0-1.0) 10^3/uL Eos # (Auto) 0.0 (0.0-0.7) 10^3/uL Baso # (Auto) 0.0 (0.0-0.1) 10^3/uL Absolute Nucleated RBC 0.00 x10^3/uL Nucleated RBC % 0.0 /100WBC Sodium (135-145) mmol/L Potassium (3.5-5.0) mmol/L Chloride (101-111) mmol/L Carbon Dioxide (21-32) mmol/L Anion Gap (6-13) BUN (6-20) mg/dL Creatinine (0.4-1.0) mg/dL Estimated GFR (MDRD) (>89) Glucose (70-100) mg/dL Calcium (8.5-10.3) mg/dL Total Bilirubin (0.2-1.0) mg/dL AST (10-42) IU/L ALT (10-60) IU/L Alkaline Phosphatase (42-121) IU/L Total Protein (6.7-8.2) g/dL Albumin (3.2-5.5) g/dL Globulin (2.1-4.2) g/dL Albumin/Globulin Ratio (1.0-2.2) Lipase (22-51) U/L Urine Color Urine Clarity (CLEAR) Urine pH (5.0-7.5) PH Ur Specific Walford (1.002-1.030) Urine Protein (NEGATIVE) mg/dL Urine Glucose (UA) (NEGATIVE) mg/dL Urine Ketones (NEGATIVE) mg/dL Urine Occult Blood (NEGATIVE) Urine Nitrite (NEGATIVE) Urine Bilirubin (NEGATIVE) Urine Urobilinogen (NORMAL) E.U./dL Ur Leukocyte Esterase (NEGATIVE) Ur Microscopic Review Urine Culture Comments Nasal Adenovirus (PCR) Nasal B. parapertussis DNA (PCR) Nasal Coronavir 229E PCR Nasal Coronavir HKU1 PCR Nasal Coronavir NL63 PCR Nasal Coronavir OC43 PCR Nasal Enterovir/Rhinovir PCR Nasal Influenza B PCR Nasal Influenza A PCR Nasal Parainfluen 1 PCR Nasal Parainfluen 2 PCR Nasal Parainfluen 3 PCR Nasal Parainfluen 4 PCR Nasal RSV (PCR) Nasal B.pertussis DNA PCR Nasal C.pneumoniae (PCR) Gerardo Human Metapneumo PCR Nasal M.pneumoniae (PCR) Nasal SARS-CoV-2 (PCR) - Diagnostic Imaging Results Diagnostic Imaging Results: positive: Prelim report reviewed Diagnostic Imaging Results Comments: I reviewed the CAT scan with the radiologist and compared to the studies done a year ago. There is definitely swirling of the mesentery that is an acute change. The colon is dilated and there is a heavy stool burden. This is all consistent with volvulus. Impression/Plan - Problem List Problem List: Abdominal pain, likely sigmoid volvulus in the setting of a 76-year-old lady with some vascular dementia and chronic constipation. I have spoken with both the patient and her sister and primary contact, Chelly Corrales. I have rec ommended that we begin our evaluation with a flexible sigmoidoscopy to try to reduce the volvulus. I am hopeful this will be successful. If we are not able to remove it due to the volvulus, we will need to consider sigmoid colectomy and Beck procedure
--- NOTE | 2021-09-03 14:44 | ANESTHESIA ---
Pre-Anesthesia VS, & Labs - Diagnosis volvulus - Procedure Flex sigmoidoscopy Vital Signs: Temp Pulse Resp BP Pulse Ox 36.8 C 63 16 142/77 H 100 09/03/21 10:06 09/03/21 13:52 09/03/21 13:52 09/03/21 13:52 09/03/21 13:52 Height: 5 ft 7 in Weight (kg): 74.843 kg Body Mass Index: 25.8 BMI Classification: Overweight - NPO >8 hours - Is Patient ?: No - Lab Results Current Lab Results: Laboratory Tests 09/03/21 09:07: Sodium 134 L, Potassium 4.1, Chloride 102, Carbon Dioxide 26, Anion Gap 6.0, BUN 17, Creatinine 0.8, Estimated GFR (MDRD) 69 L, Glucose 102 H, Calcium 8.5, Total Bilirubin < 0.2 L, AST 14, ALT 15, Alkaline Phosphatase 61, Total Protein 6.5 L, Albumin 3.9, Globulin 2.6, Albumin/Globulin Ratio 1.5, Lipase 29 09/03/21 09:07: WBC 3.3 L, RBC 4.06 L, Hgb 12.3, Hct 37.7, MCV 92.9, MCH 30.3, MCHC 32.6, RDW 14.1, Plt Count 210, MPV 8.9, Neut # (Auto) 1.1 L, Lymph # (Auto) 1.8, Yancey # (Auto) 0.4, Eos # (Auto) 0.0, Baso # (Auto) 0.0, Absolute Nucleated RBC 0.00, Nucleated RBC % 0.0 Lab results reviewed: Yes Fish Bones: 09/03/21 09:07 09/03/21 09:07 Home Medications and Allergies Allergies/Adverse Reactions: Allergies Allergy/AdvReac Type Severity Reaction Status Date / Time No Known Drug Allergies Allergy Verified 09/03/21 08:37 Anes History & Medical History - Anesthetic History Anesthesia Complications: reports: No previous complications Family history of Anesthesia Complications: Denies Family history of Malignant Hyperthermia: Denies - Medical History Cardiovascular: reports: None Pulmonary: reports: None Gastrointestinal: reports: C.difficile Urinary: reports: None Neuro: reports: Alzhiemer's, Dementia, CVA (cva x3, on plavix), Other (undergoing evaluation of cerebral vasculature; Her sister reports she has a history of Alzheimer's dementia as well.) Musculoskeletal: reports: None Endocrine/Autoimmune: reports: None Blood Disorders: reports: None Skin: reports: None, Other Smoking Status: Former smoker Other Past Medical History: on Plavix - Surgical History General: reports: Colonoscopy Gynecologic: reports: Other Orthopedic: reports: Other Exam General: Alert, Oriented x3, Cooperative, No acute distress Dental: Dentures full Upper, Dentures full Lower Mouth Openin Fingerbreadth Neck Mobility: Normal Mallampati classification: I Plan Anesthesia Type: General, Total IV Consent for Procedure(s) Verified and Reviewed: Yes Code Status: Attempt Resuscitation ASA classification: 3-Severe systemic disease Is this case an emergency?: No
[2021-09-03] MEDS ORDERED: PROPOFOL 500 MG/50 ML 500 MG/50 ML VIAL ONE (15:01)
[2021-09-03] MEDS ORDERED: LACTATED RINGERS 950 ML IV ONE (15:20)
[2021-09-03] MEDS ORDERED: SODIUM CHLORIDE FLUSH 0.9% 10 ML SYRINGE IVP PRN (15:35)
[2021-09-03] MEDS ORDERED: ONDANSETRON 4 MG/2 ML VIAL IVP PRN (15:35)
--- NOTE | 2021-09-03 16:15 | PHARMACY PROGRESS NOTE ---
- Best Possible Medication History Admit Date and Time: 09/03/21 1535 Processed by: Pharmacy Medication History completed: Yes Patient Interview: Pt unable to participate Secondary Source(s): Physician records, Pharmacy records, Insurance records As the person ultimately responsible for medication therapy, providers are able to order a medication from an existing home medication list in [facility] via the "Reconcile Routine" prior to Confirmation of that medication by technical support technician. Such practice is discouraged except when the physician, in their clinical judgment, deems that a medical need exists for a medication without regard to previous use.
--- NOTE | 2021-09-03 16:32 | ANESTHESIA POST OP EVALUATION ---
Anesthesia Post Eval - Post Anesthesia Eval Vitals: Last Vital Signs Temp 36.3 C L 09/03/21 15:57 Pulse 59 L 09/03/21 15:57 Resp 19 09/03/21 15:57 BP 168/87 H 09/03/21 15:57 Pulse Ox 100 09/03/21 15:57 CV Function Including HR & BP: Stable Pain Control: Satisfactory Nausea & Vomiting: Negative Mental Status: Baseline Respiratory Status: Airway Patent Hydration Status: Satisfactory Anesthesia Complications: None
[2021-09-03] MEDS: SODIUM CHLORIDE FLUSH 0.9% 10 ML SYRINGE IVP SCH (17:25)
[2021-09-03] MEDS ORDERED: DONEPEZIL 5 MG TABLET PO SCH (21:00)
[2021-09-03] MEDS: GABAPENTIN 300 MG CAPSULE PO SCH (21:19)
[2021-09-03] MEDS: polyethylene glycoL 3350 17 GM PACKET PO SCH (21:19)
[2021-09-04] MEDS: GABAPENTIN 300 MG CAPSULE PO SCH (06:06)
[2021-09-04] MEDS: polyethylene glycoL 3350 17 GM PACKET PO SCH (06:06)
[2021-09-04] MEDS: SODIUM CHLORIDE FLUSH 0.9% 10 ML SYRINGE IVP SCH ×2 (06:06→09:00)
[2021-09-04] MEDS ORDERED: CLOPIDOGREL 75 MG TABLET PO SCH (09:00)
--- NOTE | 2021-09-04 09:15 | PROVIDER PROGRESS NOTE ---
Subjective - General Admit Date: 09/03/21 Procedure Date: 09/03/21 Post Op Days: 1 Procedure Performed: Flexible sigmoidoscopy with reduction of Sigmoid volvulus - Review of Systems General: positive: No symptoms HEENT: positive: No symptoms Pulmonary: positive: No symptoms Cardiovascular: positive: No symptoms Gastrointestinal: positive: No symptoms Genitourinary: positive: No symptoms Musculoskeletal: positive: No symptoms Skin: positive: No symptoms All Other Systems: positive: Reviewed and negative - Other Other Information/Narrative: Leanne reports she feels back to her normal self this morning. She denies any abdominal pain she has had multiple bowel movements overnight. Objective - Patient Data Reviewed Vital Signs: Yes Vital Signs: Vital Signs x48h Temp Pulse Resp BP Pulse Ox 09/04/21 07:45 36.7 C 69 18 132/57 H 97 09/04/21 05:14 37.0 C 65 16 131/65 H 96 Weight: Weight 09/02/21 09/03/21 09/04/21 23:59 23:59 23:59 Weight (kg) 78 kg Intake & Output: Intake and Output Totals x24h 09/02/21 09/03/21 09/04/21 23:59 23:59 23:59 Intake Total 2076 650 Output Total 1350 Balance 726 650 - Lab Results Lab Results: 09/03/21 09:07 09/03/21 09:07 Other Lab Results: Lab Results x24hrs 09/03/21 09/03/21 09/03/21 Range/Units 12:10 10:42 09:07 WBC (4.8-10.8) x10^3/uL RBC (4.20-5.40) 10^6/uL Hgb (12.0-16.0) g/dL Hct (37.0-47.0) % MCV (81.0-99.0) fL MCH (27.0-31.0) pg MCHC (32.0-36.0) g/dL RDW (12.0-15.0) % Plt Count (130-450) 10^3/uL MPV (7.9-10.8) fL Neut # (Auto) (1.5-6.6) 10^3/uL Lymph # (Auto) (1.5-3.5) 10^3/uL Walton # (Auto) (0.0-1.0) 10^3/uL Eos # (Auto) (0.0-0.7) 10^3/uL Baso # (Auto) (0.0-0.1) 10^3/uL Absolute Nucleated RBC x10^3/uL Nucleated RBC % /100WBC Sodium 134 L (135-145) mmol/L Potassium 4.1 (3.5-5.0) mmol/L Chloride 102 (101-111) mmol/L Carbon Dioxide 26 (21-32) mmol/L Anion Gap 6.0 (6-13) BUN 17 (6-20) mg/dL Creatinine 0.8 (0.4-1.0) mg/dL Estimated GFR (MDRD) 69 L (>89) Glucose 102 H (70-100) mg/dL Calcium 8.5 (8.5-10.3) mg/dL Total Bilirubin < 0.2 L (0.2-1.0) mg/dL AST 14 (10-42) IU/L ALT 15 (10-60) IU/L Alkaline Phosphatase 61 (42-121) IU/L Total Protein 6.5 L (6.7-8.2) g/dL Albumin 3.9 (3.2-5.5) g/dL Globulin 2.6 (2.1-4.2) g/dL Albumin/Globulin Ratio 1.5 (1.0-2.2) Lipase 29 (22-51) U/L Urine Color YELLOW Urine Clarity CLEAR (CLEAR) Urine pH 5.5 (5.0-7.5) PH Ur Specific Brutus 1.020 (1.002-1.030) Urine Protein NEGATIVE (NEGATIVE) mg/dL Urine Glucose (UA) NEGATIVE (NEGATIVE) mg/dL Urine Ketones NEGATIVE (NEGATIVE) mg/dL Urine Occult Blood NEGATIVE (NEGATIVE) Urine Nitrite NEGATIVE (NEGATIVE) Urine Bilirubin NEGATIVE (NEGATIVE) Urine Urobilinogen 0.2 (NORMAL) (NORMAL) E.U./dL Ur Leukocyte Esterase NEGATIVE (NEGATIVE) Ur Microscopic Review NOT INDICATED Urine Culture Comments NOT INDICATED Nasal Adenovirus (PCR) NOT DETECTED Nasal B. parapertussis DNA (PCR) NOT DETECTED Nasal Coronavir 229E PCR NOT DETECTED Nasal Coronavir HKU1 PCR NOT DETECTED Nasal Coronavir NL63 PCR NOT DETECTED Nasal Coronavir OC43 PCR NOT DETECTED Nasal Enterovir/Rhinovir PCR NOT DETECTED Nasal Influenza B PCR NOT DETECTED Nasal Influenza A PCR NOT DETECTED Nasal Parainfluen 1 PCR NOT DETECTED Nasal Parainfluen 2 PCR NOT DETECTED Nasal Parainfluen 3 PCR NOT DETECTED Nasal Parainfluen 4 PCR NOT DETECTED Nasal RSV (PCR) NOT DETECTED Nasal B.pertussis DNA PCR NOT DETECTED Nasal C.pneumoniae (PCR) NOT DETECTED Gerardo Human Metapneumo PCR NOT DETECTED Nasal M.pneumoniae (PCR) NOT DETECTED Nasal SARS-CoV-2 (PCR) NOT DETECTED 09/03/21 Range/Units 09:07 WBC 3.3 L (4.8-10.8) x10^3/uL RBC 4.06 L (4.20-5.40) 10^6/uL Hgb 12.3 (12.0-16.0) g/dL Hct 37.7 (37.0-47.0) % MCV 92.9 (81.0-99.0) fL MCH 30.3 (27.0-31.0) pg MCHC 32.6 (32.0-36.0) g/dL RDW 14.1 (12.0-15.0) % Plt Count 210 (130-450) 10^3/uL MPV 8.9 (7.9-10.8) fL Neut # (Auto) 1.1 L (1.5-6.6) 10^3/uL Lymph # (Auto) 1.8 (1.5-3.5) 10^3/uL Walton # (Auto) 0.4 (0.0-1.0) 10^3/uL Eos # (Auto) 0.0 (0.0-0.7) 10^3/uL Baso # (Auto) 0.0 (0.0-0.1) 10^3/uL Absolute Nucleated RBC 0.00 x10^3/uL Nucleated RBC % 0.0 /100WBC Sodium (135-145) mmol/L Potassium (3.5-5.0) mmol/L Chloride (101-111) mmol/L Carbon Dioxide (21-32) mmol/L Anion Gap (6-13) BUN (6-20) mg/dL Creatinine (0.4-1.0) mg/dL Estimated GFR (MDRD) (>89) Glucose (70-100) mg/dL Calcium (8.5-10.3) mg/dL Total Bilirubin (0.2-1.0) mg/dL AST (10-42) IU/L ALT (10-60) IU/L Alkaline Phosphatase (42-121) IU/L Total Protein (6.7-8.2) g/dL Albumin (3.2-5.5) g/dL Globulin (2.1-4.2) g/dL Albumin/Globulin Ratio (1.0-2.2) Lipase (22-51) U/L Urine Color Urine Clarity (CLEAR) Urine pH (5.0-7.5) PH Ur Specific Brutus (1.002-1.030) Urine Protein (NEGATIVE) mg/dL Urine Glucose (UA) (NEGATIVE) mg/dL Urine Ketones (NEGATIVE) mg/dL Urine Occult Blood (NEGATIVE) Urine Nitrite (NEGATIVE) Urine Bilirubin (NEGATIVE) Urine Urobilinogen (NORMAL) E.U./dL Ur Leukocyte Esterase (NEGATIVE) Ur Microscopic Review Urine Culture Comments Nasal Adenovirus (PCR) Nasal B. parapertussis DNA (PCR) Nasal Coronavir 229E PCR Nasal Coronavir HKU1 PCR Nasal Coronavir NL63 PCR Nasal Coronavir OC43 PCR Nasal Enterovir/Rhinovir PCR Nasal Influenza B PCR Nasal Influenza A PCR Nasal Parainfluen 1 PCR Nasal Parainfluen 2 PCR Nasal Parainfluen 3 PCR Nasal Parainfluen 4 PCR Nasal RSV (PCR) Nasal B.pertussis DNA PCR Nasal C.pneumoniae (PCR) Gerardo Human Metapneumo PCR Nasal M.pneumoniae (PCR) Nasal SARS-CoV-2 (PCR) - Current Medications Current Medications: Current Medications Generic Name Dose Route Start Last Admin Trade Name Freq PRN Reason Stop Dose Admin Clopidogrel Bisulfate 75 mg 09/04/21 09:00 09/04/21 08:59 Clopidogrel 75 Mg Tablet PO 75 mg DAILY EDGARDO Administration Donepezil HCl 10 mg 09/03/21 21:00 09/03/21 21:19 Donepezil 5 Mg Tablet PO 10 mg QPM EDGARDO Administration Gabapentin 300 mg 09/03/21 22:00 09/04/21 06:06 Gabapentin 300 Mg Capsule PO 300 mg TID EDGARDO Administration Polyethylene Glycol 17 gm 09/03/21 22:00 09/04/21 06:06 Polyethylene Glycol 3350 17 Gm Packet PO 17 gm TID EDGARDO Administration Sodium Chloride 10 ml 09/03/21 17:00 09/04/21 09:00 Sodium Chloride Flush 0.9% 10 Ml Syringe IVP 10 ml 0100,0900,1700 EDGARDO Administration - Physical Exam General Appearance: positive: No acute distress, Alert Eyes Bilateral: positive: Normal inspection, PERRL, EOMI Neck: positive: Nml inspection Respiratory: positive: Chest non-tender, No respiratory distress Cardiovascular: positive: Regular rate & rhythm Abdomen: positive: Non-tender, Nml bowel sounds. negative: Guarding, Rebound Extremities: positive: Non-tender Neurologic/Psychiatric: positive: Oriented x3 ABX Reporting Has patient been on IV antibiotics over the past 48 hours?: No Impression/Plan - Problem List Problem List: Discharge to home today. Follow-up with me in 2 weeks at [facility].
[2021-09-04 11:03] VITALS: BP 117/67
--- NOTE | 2021-09-04 11:40 | Discharge Plan ---
Discharge Plan Problem Reviewed?: Yes Disposition: Home, Self Care Condition: Stable Diet: Regular Activity Restrictions: No Restrictions Shower Restrictions: No Driving Restrictions: No No Smoking: If you smoke, Please STOP! Call for help. Follow-up with: Nate Gage MD [Provider Admit Priv/Credential] -
--- NOTE | 2021-09-04 11:44 | DISCHARGE SUMMARY ---
"Discharge Summary Admit Date: 09/03/21 Discharge Date: 09/04/21 Discharging Provider: Too Code Status: Attempt Resuscitation Condition at Discharge: Stable Discharge Disposition: 01 Home, Self Care - DIAGNOSES Admission Diagnoses: Sigmoid volvulus Discharge Diagnoses with Status of Each Condition: Resolved - HPI History of Present Illness: 76 year old lady with a history of an elongated and tortuous colon. She presented to the ED and was found to have sigmoid volvulus. Additionally, she had an incarcerated ventral hernia without related obstruction.I was consulted for definitive management. - CONSULTS | PROCEDURES Procedures: Flexible sigmoidoscopy with reduction of sigmoid volvulus - HOSPITAL COURSE Hospital Course: Patient was admitted from the emergency room and taken to the operating room where she underwent a successful flexible sigmoidoscopy with reduction of the sigmoid volvulus. Additionally, while the patient was asleep, we were able to reduce the ventral hernia. She was returned to the [facility] floor and started back on her cathartics. She was able to have several bowel movements overnight and is feeling back to her normal self this morning.She will be discharged to home in her own care. She will follow-up with me in 2 weeks to arrange a referral to a colorectal surgeon to discuss elective sigmoid colectomy. - ALLERGIES Allergies/Adverse Reactions: Allergies Allergy/AdvReac Type Severity Reaction Status Date / Time No Known Drug Allergies Allergy Verified 09/03/21 08:37 - MEDICATIONS Home Medications: Ambulatory Orders Medication Instructions Recorded Confirmed Clopidogrel [Plavix] 75 mg PO DAILY 09/03/21 09/03/21 Donepezil [Aricept] 10 mg PO QPM 09/03/21 09/03/21 Gabapentin [Neurontin] 300 mg PO TID 09/03/21 09/03/21 Valacyclovir HCl [Valtrex] 1,000 mg PO DAILY PRN 09/03/21 09/03/21 - PHYSICAL EXAM AT DISCHARGE General Appearance: positive: No acute distress, Alert Eyes Bilateral: positive: Normal inspection, PERRL, EOMI ENT: positive: ENT inspection nml, Pharynx nml, No signs of dehydration Neck: positive: Nml inspection Respiratory: positive: Chest non-tender, No respiratory distress, Breath sounds nml Cardiovascular: positive: Regular rate & rhythm Peripheral Pulses: positive: 0 Abdomen: positive: Nml bowel sounds, No distention. negative: Tenderness, Guarding, Rebound Skin: positive: Color nml Neurologic/Psychiatric: positive: Oriented x3 - LABS Result Diagrams: 09/03/21 09:07 09/03/21 09:07 - QUALITY (Female Hip Fx Only) Was patient sent home on osteoporosis medication?: No - FOLLOW UP Follow Up: [address] [facility] surgical care - TIME SPENT Time Spent in Discharge (Minutes): 15"
== END 2021-09-04 13:25 | disposition home or self-care (01) ==
LOC: ED 08:08 → INTOOBSV 12:25 → MS2 12:25 → UNDOADMOB 12:25 → MS2 15:35
PROVIDERS: ADMIT Surgery; ATTEND Surgery
DX: K56.2 Volvulus (principal); K64.4 Residual hemorrhoidal skin tags; Z20.822 Contact with and (suspected) exposure to COVID-19; Z87.891 Personal history of nicotine dependence
CPT/HCPCS: 36415; 45337; 74177; 80053; 81003; 83690; 85025; 87631; 96374; 99284; 99285; A9270; G0378; J7120; Q9967; 0202U; 81001; 87086

== ENCOUNTER 2021-11-30 14:22 | Emergency (ER) | payer MEDICARE, OTHER ==
--- NOTE | 2021-11-30 14:45 | ED Physician Documentation ---
PD HPI ABD PAIN - Stated complaint Stated Complaint: R SIDE PX - Chief complaint Chief Complaint: Abd Pain - History obtained from History obtained from: Patient - History of Present Illness Timing - onset: How many days ago (4-5) Timing - duration: Days (4-5) Timing - details: Gradual onset, Waxing and waning Quality: Cramping, Fullness/distended (The patient states she has not had a notable bowel movement for 4 to 5 days. She had been using MiraLAX with small amount of watery rectal output. Still having some intermittent cramps and fullness of the abdomen. She did have sigmoid volvulus in August and is concerned about recurrence.) Location: Other (mostly lower abd) Radiation: No: Chest, Lower back Worsened by: Eating, Palpation Associated symptoms: Loss of appetite. No: Fever, Nausea, Vomiting Similar symptoms before: Diagnosis (Sigmoid volvulus in August that was resolved surgically with colonoscopy by Dr. Garcia. Her degree of distention and pain was much more significant with that event. Current pain is much milder.) Review of Systems Constitutional: denies: Fever, Chills Nose: denies: Rhinorrhea / runny nose, Congestion Throat: denies: Sore throat Cardiac: denies: Chest pain / pressure Respiratory: denies: Dyspnea, Cough GI: reports: Abdominal Pain (intermittent cramping), Nausea, Constipation (4-5 days with just small liquid out after miralax.). 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 - Present Medications Home Medications: Ambulatory Orders Medication Instructions Recorded Confirmed Clopidogrel [Plavix] 75 mg PO DAILY 09/03/21 09/03/21 Donepezil [Aricept] 10 mg PO QPM 09/03/21 09/03/21 Gabapentin [Neurontin] 300 mg PO TID 09/03/21 09/03/21 Valacyclovir HCl [Valtrex] 1,000 mg PO DAILY PRN 09/03/21 09/03/21 Docusate Sodium 100Mg Capsule 100 mg PO DAILY #20 cap 11/30/21 [Colace 100Mg Capsule] polyethylene glycoL 3350 [Miralax] 17 gm PO DAILY PRN #1 bottle 11/30/21 - Allergies Allergies/Adverse Reactions: Allergies Allergy/AdvReac Type Severity Reaction Status Date / Time No Known Drug Allergies Allergy Verified 11/30/21 14:42 - Social History Does the pt smoke?: No Smoking Status: Former smoker Does the pt drink ETOH?: No Does the pt have substance abuse?: No - Immunizations Immunizations are current?: Yes - POLST Patient has POLST: No PD ED PE NORMAL - Vitals Vital signs reviewed: Yes - General General: Alert and oriented X 3, No acute distress, Well developed/nourished - Cardiac Cardiac: RRR, No murmur - Respiratory Respiratory: Clear bilaterally - Abdomen Abdomen: Soft, Non distended, No organomegaly, Other (Abdomen is really not tender at this time. No tenderness to percussion or palpation.). No: Normal bowel sounds (increased bowel sounds generally) - Derm Derm: Normal color, Warm and dry - Extremities Extremities: Normal ROM s pain, No edema, No calf tenderness / cord - Neuro Neuro: Alert and oriented X 3, No motor deficit, Normal speech Results - Vitals Vitals: Vital Signs - 24 hr 11/30/21 11/30/21 11/30/21 14:39 14:41 16:41 Temperature 35.9 C L Heart Rate 78 66 82 Respiratory 16 16 16 Rate Blood Pressure 109/84 H 152/97 H 111/83 H O2 Saturation 100 96 100 Oxygen O2 Source Room air - Labs Labs: Laboratory Tests 11/30/21 11/30/21 11/30/21 15:30 15:30 16:17 WBC 3.8 L RBC 4.08 L Hgb 13.0 Hct 37.9 MCV 92.9 MCH 31.9 H MCHC 34.3 RDW 13.5 Plt Count 217 MPV 9.2 Neut # (Auto) 1.7 Lymph # (Auto) 1.6 [place] # (Auto) 0.4 Eos # (Auto) 0.1 Baso # (Auto) 0.0 Absolute Nucleated RBC 0.00 Nucleated RBC % 0.0 Sodium 136 Potassium 3.7 Chloride 101 Carbon Dioxide 26 Anion Gap 9.0 BUN 17 Creatinine 1.0 Estimated GFR (MDRD) 54 L Glucose 112 H Calcium 9.0 Total Bilirubin 0.4 AST 16 ALT 14 Alkaline Phosphatase 63 Total Protein 6.9 Albumin 4.0 Globulin 2.9 Albumin/Globulin Ratio 1.4 Lipase 35 Urine Color YELLOW Urine Clarity CLEAR Urine pH 5.5 Ur Specific [place] >=1.030 H Urine Protein NEGATIVE Urine Glucose (UA) NEGATIVE Urine Ketones NEGATIVE Urine Occult Blood NEGATIVE Urine Nitrite NEGATIVE Urine Bilirubin NEGATIVE Urine Urobilinogen 0.2 (NORMAL) Ur Leukocyte Esterase NEGATIVE Ur Microscopic Review NOT INDICATED Urine Culture Comments NOT INDICATED - Rads (name of study) abd/pelvic CT Radiology: Prelim report reviewed (copious stool in colon. No obstruction nor acute process. ), See rad report PD MEDICAL DECISION MAKING - ED course Complexity details: reviewed results (large amount stool in colon. Air trapped above. No obstruction. ), considered differential (She complains of abdominal cramping pain and some distention with no bowel stools for 4 to 5 days. She is concerned about partial obstruction. Clinical exam is low suspicion but we can get imaging. We will try different laxatives and stool softeners.), d/w patient Departure - Departure Disposition: Home, Self Care Clinical Impression: Abdominal fullness Constipation Qualifiers: Constipation type: unspecified constipation type Qualified Code(s): K59.00 - Constipation, unspecified Condition: Stable Record reviewed to determine appropriate education?: Yes Instructions: ED Constipation Prescriptions: Docusate Sodium 100Mg Capsule [Colace 100Mg Capsule] 100 mg PO DAILY #20 cap polyethylene glycoL 3350 [Miralax] 17 gm PO DAILY PRN #1 bottle PRN Reason: Constipation Comments: Your CT scan does not show any blockage or twisting of the intestine. It does show constipation particularly through the colon. Use docusate stool softener twice daily for the next few days and then once daily after that for couple of weeks. Continue with your MiraLAX at home 17 g and a cup of water usual dose and you can you do that every 1-2 hours until starting to have bowel movements. You may notice some liquid watery per rectum initially but you want to actually get some stool out. Recheck if not improved over the next day or 2. Return if worse. Continue your other usual medicines. I sent prescriptions to [facility] pharmacy.
[2021-11-30] MEDS ORDERED: KETOROLAC 15 MG/ML VIAL IVP STA (14:58)
[2021-11-30] MEDS ORDERED: SODIUM CHLORIDE 0.9% 1,000 ML IV STA (14:59)
[2021-11-30] MEDS ORDERED: IOVERSOL 320 50 ML VIAL ONE (15:12)
[2021-11-30] MEDS: bisacodyL 5 MG TABLET PO STA (15:26)
[2021-11-30 15:35] LABS: BASOPHILS % (AUTO) 0.5 %; EOSINOPHILS # (AUTO) 0.1 10^3/uL (0.0-0.7); EOSINOPHILS % (AUTO) 1.6 %; HCT - HEMATOCRIT 37.9 % (37.0-47.0); LYMPHOCYTES # (AUTO) 1.6 10^3/uL (1.5-3.5); LYMPHOCYTES % (AUTO) 42.7 %; MEAN CORPUSCULAR HEMOGLOBIN 31.9 pg (27.0-31.0); MEAN CORPUSCULAR HGB CONC 34.3 g/dL (32.0-36.0); MEAN CORPUSCULAR VOLUME 92.9 fL (81.0-99.0); MEAN PLATELET VOLUME 9.2 fL (7.9-10.8); MONOCYTES # (AUTO) 0.4 10^3/uL (0.0-1.0); MONOCYTES % (AUTO) 10.7 %; NEUTROPHILS # (AUTO) 1.7 10^3/uL (1.5-6.6); NEUTROPHILS % (AUTO) 44.2 %; PLT - PLATELET COUNT 217 10^3/uL (130-450); RED BLOOD COUNT 4.08 10^6/uL (4.20-5.40); RED CELL DISTRIBUTION WIDTH 13.5 % (12.0-15.0); WHITE BLOOD COUNT 3.8 x10^3/uL (4.8-10.8)
[2021-11-30 15:45] LABS: ALBUMIN/GLOBULIN RATIO 1.4 (1.0-2.2); BILIRUBIN,TOTAL 0.4 mg/dL (0.2-1.0); POTASSIUM 3.7 mmol/L (3.5-5.0); TOTAL PROTEIN 6.9 g/dL (6.7-8.2)
[2021-11-30 16:24] LABS: BILIRUBIN,URINE NEGATIVE (NEGATIVE); GLUCOSE, URINE (UA) NEGATIVE (NEGATIVE); KETONES,URINE (UA) NEGATIVE (NEGATIVE); LEUKOCYTE ESTERASE, URINE NEGATIVE (NEGATIVE); NITRITE,URINE NEGATIVE (NEGATIVE); OCCULT BLOOD,URINE NEGATIVE (NEGATIVE); PH,URINE 5.5 PH (5.0-7.5); PROTEIN,URINE NEGATIVE (NEGATIVE); UROBILINOGEN,URINE 0.2 (NORMAL) E.U./dL (NORMAL)
[2021-11-30 16:46] LABS: CLARITY,URINE CLEAR (CLEAR)
[2021-11-30] MEDS ORDERED: IOVERSOL 320 50 ML VIAL IVP ONE (16:47)
--- NOTE | 2021-11-30 17:21 | CT Report ---
PROCEDURE: CT abdomen and pelvis with contrast INDICATIONS: LLQ Abdominal pain, diverticulitis suspected CONTRAST: IV CONTRAST: Optiray 320 ml: 100 PO CONTRAST: *NO PO CONTRAST TECHNIQUE: After the administration of contrast, 5 mm thick sections acquired from the diaphragms to the sym physis. 5 mm thick coronal and sagittal reformats were acquired. For radiation dose reduction, the following was used: automated exposure control, adjustment of mA and/or kV according to patient size . COMPARISON: 09/03/2021 FINDINGS: Image quality: Excellent. ABDOMEN: Lung bases: Lung bases are clear. Heart size is normal. Annular mitral valve calcification present. Solid organs: Liver and spleen are normal in size and enhancement. Hepatic fatty infiltration noted . Gallbladder unremarkable Biliary system is non dilated. Pancreas enhances normally. No adrenal n odules. Kidneys demonstrate normal size and enhancement, without hydronephrosis. Both adrenal gland s again show nodular thickening, left greater than right, similar prior exam Peritoneum and bowel: Large amount fecal debris present in the colon with relative sparing of the sig moid colon.: Redundance noted. Normal appendix identified. Swirling of the mesentery has resolved in the interval. Nodes and vessels: No retroperitoneal or mesenteric adenopathy by size criteria. Aorta and inferior vena cava are normal in size. Atherosclerotic calcification of the abdominal aorta without evidence of aneurysm. Miscellaneous: No ventral hernias. Prior nodular subcutaneous soft tissue has resolved in the interv al PELVIS: Genitourinary: Bladder wall thickness is normal. Miscellaneous: No inguinal hernias or adenopathy. Bones: No suspicious bony lesions. No vertebral body compression fractures. IMPRESSION: 1. No acute CT findings in the abdomen and pelvis. No diverticulitis 2. Large amount fecal debris in the colon with relative sparing of the sigmoid:. No evidence of bowel obstruction. 3. Stable nodular thickening of the left adrenal gland hyperplasia, nevertheless stable. Reviewed by: Denilson Early MD on 11/30/2021 4:20 PM [email or web address] Approved by: Denilson Early MD on 11/30/2021 4:20 PM AKDT Station ID: [id number]
[2021-11-30] MEDS ORDERED: LACTULOSE 10 GM /15 ML UDC PO STA (17:31)
[2021-11-30 17:48] VITALS: BP 125/90
== END 2021-11-30 17:46 | disposition home or self-care (01) ==
LOC: ED 14:22
DX: R14.0 Abdominal distension (gaseous) (principal); K59.00 Constipation, unspecified; Z87.891 Personal history of nicotine dependence
CPT/HCPCS: 36415; 74177; 80053; 81003; 83690; 85025; 96374; 99282; 99284; A9270; 81001; 87086

== ENCOUNTER 2022-01-07 14:06 | Emergency (ER) | payer MEDICARE, OTHER ==
[2022-01-07 14:33] LABS: BASOPHILS % (AUTO) 0.4 %; EOSINOPHILS # (AUTO) 0.1 10^3/uL (0.0-0.7); EOSINOPHILS % (AUTO) 1.4 %; HGB - HEMOGLOBIN 12.8 g/dL (12.0-16.0); LYMPHOCYTES # (AUTO) 2.3 10^3/uL (1.5-3.5); LYMPHOCYTES % (AUTO) 45.8 %; MEAN CORPUSCULAR HEMOGLOBIN 31.6 pg (27.0-31.0); MEAN CORPUSCULAR HGB CONC 32.8 g/dL (32.0-36.0); MEAN CORPUSCULAR VOLUME 96.3 fL (81.0-99.0); MEAN PLATELET VOLUME 9.1 fL (7.9-10.8); MONOCYTES # (AUTO) 0.5 10^3/uL (0.0-1.0); MONOCYTES % (AUTO) 9.4 %; NEUTROPHILS # (AUTO) 2.2 10^3/uL (1.5-6.6); NEUTROPHILS % (AUTO) 42.8 %; PLT - PLATELET COUNT 232 10^3/uL (130-450); RED BLOOD COUNT 4.05 10^6/uL (4.20-5.40); RED CELL DISTRIBUTION WIDTH 13.2 % (12.0-15.0); WHITE BLOOD COUNT 5.1 x10^3/uL (4.8-10.8)
[2022-01-07 14:46] LABS: ALBUMIN 4.3 g/dL (3.2-5.5); ALBUMIN/GLOBULIN RATIO 1.5 (1.0-2.2); BILIRUBIN,TOTAL 0.4 mg/dL (0.2-1.0); CALCIUM 9.2 mg/dL (8.5-10.3); CREATININE 0.9 mg/dL (0.4-1.0); POTASSIUM 3.7 mmol/L (3.5-5.0); TOTAL PROTEIN 7.1 g/dL (6.7-8.2)
--- NOTE | 2022-01-07 14:52 | XRAY Report ---
PROCEDURE: Chest 1 View X-Ray INDICATIONS: Chest Pain TECHNIQUE: One view of the chest was acquired. COMPARISON: Chest x-ray 04/28/2017 FINDINGS: Surgical changes and devices: None. Lungs and pleura: No pleural effusions or pneumothorax. Lungs are clear. Mediastinum: Mediastinal contours appear normal. Heart size is normal. Bones and chest wall: No suspicious bony lesions. Overlying soft tissues appear unremarkable. IMPRESSION: No acute pulmonary process. Reviewed by: Marita Weiss MD on 01/07/2022 2:50 PM PDT Approved by: Marita Weiss MD on 01/07/2022 2:50 PM PDT Station ID: [id number]
--- NOTE | 2022-01-07 14:53 | ED Physician Documentation ---
History of Present Illness - Stated complaint Stated Complaint: ABD PX - Chief complaint Chief Complaint: Cardiac - Additonal information Additional information: 76-year-old female presents emergency department for evaluation of an abnormal s ensation in her chest. Each of the last 2 mornings she is woken up with a flutter in her chest. It lasted for about 30 minutes before fully subsiding. She went on about her day yesterday without any return in symptoms. It again happened this morning. At this time in the emergency department she is free of symptoms. She states she has never had this before. She denies that it is painful or that she is short of breath. She states that she is aware of her heartbeat but does not call a palpitations nor does she feel like she has a racing heart. She has no fevers. She does also report a longstanding history of abdominal pain. She endorses some constipation for which she takes MiraLAX. She has had abdominal pain off and on for many months. She did go to the operating theater in August 2021 for a sigmoid volvulus. Was seen by my colleague in late November for upper abdominal pain found to have fairly significant constipation. Patient denies any changes in her abdominal symptoms, fevers vomiting black or bloody stools. She is not so much concerned today of abdominal pain. More concerned about the flutter and abnormal sensations she had in her chest. She describes herself as rather healthy. Takes no cardiac medications. Denies any history of coronary artery disease or stroke. Review of Systems Constitutional: denies: Fever, Chills Eyes: reports: Reviewed and negative Nose: reports: Reviewed and negative Throat: reports: Reviewed and negative Cardiac: reports: Palpitations GI: reports: Abdominal Pain : reports: Reviewed and negative Skin: reports: Reviewed and negative Musculoskeletal: reports: Reviewed and negative PD PAST MEDICAL HISTORY - Past Medical History Cardiovascular: None Respiratory: None Neuro: Other (undergoing evaluation of cerebral vasculature) Endocrine/Autoimmune: None GI: C.difficile : None Psych: None Musculoskeletal: None Derm: None, Other - Past Surgical History Past Surgical History: Yes General: Colonoscopy 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 - Present Medications Home Medications: Ambulatory Orders Medication Instructions Recorded Confirmed Clopidogrel [Plavix] 75 mg PO DAILY 09/03/21 09/03/21 Donepezil [Aricept] 10 mg PO QPM 09/03/21 09/03/21 Gabapentin [Neurontin] 300 mg PO TID 09/03/21 09/03/21 Valacyclovir HCl [Valtrex] 1,000 mg PO DAILY PRN 09/03/21 09/03/21 Docusate Sodium 100Mg Capsule 100 mg PO DAILY #20 cap 11/30/21 [Colace 100Mg Capsule] polyethylene glycoL 3350 [Miralax] 17 gm PO DAILY PRN #1 bottle 11/30/21 - Allergies Allergies/Adverse Reactions: Allergies Allergy/AdvReac Type Severity Reaction Status Date / Time No Known Drug Allergies Allergy Verified 01/07/22 14:13 - Social History Does the pt smoke?: No Smoking Status: Former smoker Does the pt drink ETOH?: No Does the pt have substance abuse?: No - Immunizations Immunizations are current?: Yes - POLST Patient has POLST: No PD ED PE NORMAL - General General: Alert and oriented X 3, No acute distress - HEENT HEENT: Atraumatic, PERRL, Moist mucous membranes, Pharynx benign - Neck Neck: Supple, no meningeal sign, No adenopathy - Cardiac Cardiac: RRR, No murmur, Strong equal pulses - Respiratory Respiratory: No respiratory distress, Clear bilaterally - Abdomen Abdomen: Normal bowel sounds, Soft, Non tender (Unable to elicit any abdominal tenderness on my exam.) - Back Back: No CVA TTP, No spinal TTP - Derm Derm: Normal color, Warm and dry, No rash - Extremities Extremities: No deformity, No tenderness to palpate, Normal ROM s pain - Neuro Neuro: Alert and oriented X 3, 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 Eye Opening: Spontaneous Motor: Obeys Commands Verbal: Oriented GCS Score: 15 - Psych Psych: Normal mood Results - Vitals Vitals: Vital Signs - 24 hr 01/07/22 01/07/22 01/07/22 14:13 14:42 14:50 Temperature 36 C L Heart Rate 66 65 65 Respiratory 18 18 22 Rate Blood Pressure 116/44 L 151/61 H 151/61 H O2 Saturation 100 97 100 01/07/22 15:20 Temperature Heart Rate 70 Respiratory 13 Rate Blood Pressure 140/84 H O2 Saturation 96 Oxygen O2 Source Room air - EKG (time done) 1432 Rate: Rate (enter#) (62) Rhythm: NSR [place]: Normal Intervals: Normal MT QRS: Normal Ischemia: Normal ST segments Compare to prior EKG: Unchanged from prior EKG Computer interpretation: Agree with computer - Labs Labs: Laboratory Tests 01/07/22 01/07/22 01/07/22 14:28 14:28 14:28 WBC 5.1 RBC 4.05 L Hgb 12.8 Hct 39.0 MCV 96.3 MCH 31.6 H MCHC 32.8 RDW 13.2 Plt Count 232 MPV 9.1 Neut # (Auto) 2.2 Lymph # (Auto) 2.3 [place] # (Auto) 0.5 Eos # (Auto) 0.1 Baso # (Auto) 0.0 Absolute Nucleated RBC 0.00 Nucleated RBC % 0.0 Sodium 135 Potassium 3.7 Chloride 100 L Carbon Dioxide 27 Anion Gap 8.0 BUN 17 Creatinine 0.9 Estimated GFR (MDRD) 61 L Glucose 102 H Calcium 9.2 Total Bilirubin 0.4 AST 16 ALT 15 Alkaline Phosphatase 61 Troponin I High Sens 2.6 Total Protein 7.1 Albumin 4.3 Globulin 2.8 Albumin/Globulin Ratio 1.5 Lipase 37 - Rads (name of study) cxr Radiology: Final report received (No acute cardiopulmonary process) PD MEDICAL DECISION MAKING - ED course Complexity details: reviewed results, re-evaluated patient, considered differential, d/w patient ED course: This is a well-appearing 76-year-old female that comes to the emergency department for evaluation of an abnormal sensation in her chest that she has noticed each morning when she wakes up from sleep. This sensation lasted for about 10 to 30 minutes. It is not present elsewise during the day. She denies chest pain frankly or shortness of air. Today her screening EKG is unremarkable for age. Chest x-ray is without obvious findings. Screening labs including high-sensitivity troponin are also negative. None my suspicion for PE is rather low by Wells criteria. I encourage patient to have close follow-up with her primary care provider. Given that this occurs in the a.m. when she sleeps this may be related to sleep apnea. She may benefit from a Holter monitor. Emergent return precautions discussed Departure - Departure Disposition: 01 Home, Self Care Clinical Impression: Heart palpitations Condition: Stable Record reviewed to determine appropriate education?: Yes Comments: Leanne sky are seen today in the emergency department after you have woken up each of the last 2 mornings with a fluttering weird sensation in your chest. This is usually described as palpitations. Today your screening EKG, chest x-ray and labs are all essentially normal which is very reassuring. Though the cause of the palpitations that you have right after you wake up is not clear, it may be related to sleep or dreams. Please discuss this ED visit with your primary care provider. You may benefit from wearing a Holter monitor to determine if you are developing any abnormal heart rhythms during sleep. If at any point you develop fevers, have chest pain, shortness of air or any fainting episodes then please return immediately to the ER for second evaluation
[2022-01-07 15:22] VITALS: BP 140/84
== END 2022-01-07 15:35 | disposition home or self-care (01) ==
LOC: ED 14:06
DX: R00.2 Palpitations (principal); Z87.891 Personal history of nicotine dependence
CPT/HCPCS: 36415; 80053; 83690; 84484; 85025; 93005; 99282; 99284

== ENCOUNTER 2022-03-02 18:39 | Outpatient (CLI) | payer MEDICARE, OTHER | END 2022-03-02 18:40 | disposition short-term general hospital (02) | LOC: EMS 18:39 | DX: R41.82 Altered mental status, unspecified (principal); R53.1 Weakness; R29.810 Facial weakness; R11.10 Vomiting, unspecified | CPT/HCPCS: A0425; A0427 ==